=== PATIENT | female | born 1965 | race Caucasian/White ===

== ENCOUNTER 2019-09-22 00:32 | Outpatient (CLI) | payer BC, SELFPAY ==
--- NOTE | 2019-09-22 08:39 | DI.MAMMO_ITS ---
EXAM: MAMMO SCREENING CLINICAL HISTORY: SCREENING, PREVENTATIVE CARE, Z12.31, Z00.00 TECHNIQUE: Mammograms were interpreted according to the usual protocol including computer analysis w Dispatch CAD system, tomosynthesis and C-view imaging. FINDINGS: The breasts are of moderate density with fairly symmetrical distribution of fibroglandular tissue. A n area of asymmetric density is again noted in upper-outer quadrant of the left breast as seen on pre vious examinations including November 2017 and December 2012. On today's examination, this appears more prominent particularly on the CC view, in comparison with the previous examinations. Additional keith mographic views of this area and breast ultrasound are recommended. No other significant change. IMPRESSION: Question increase in prominence of upper outer quadrant left breast asymmetric radiodensity with some question of architectural distortion and/or mass. Additional mammographic views left breast and left breast ultrasound requested. Category 0. Breast density, category B. BI-RADS Cat 0 - Assessment Incomplete: Need additional imaging evaluation. Breast Density - Category B - Scattered areas of fibroglandular density.
== END 2019-09-22 00:52 ==
PROVIDERS: PCP Nurse Practitioner Family; Visit Provider Nurse Practitioner Family
DX: Z12.31 Encounter for screening mammogram for malignant neoplasm of breast (principal); R92.8 Other abnormal and inconclusive findings on diagnostic imaging of breast
CPT/HCPCS: 77063; 77067

== ENCOUNTER 2019-09-27 14:54 | Outpatient (REF) | payer BC, SELFPAY ==
[2019-09-27 17:58] LABS: HCT 40.7 % (36.0-46.0); HGB 13.6 g/dL (12.0-15.5); Mean Corp. HGB Concentration 33.4 g/dL (32.0-36.0); Mean Corpuscular Hemoglobin 30.4 pg (27.0-33.0); Mean Corpuscular Volume 91.1 fL (80-95); Mean Platelet Volume 9.9 fL (8.0-11.0); Platelet Count 300 x1000/uL (130-400); RBC 4.47 m/cumm (4.00-5.20); RBC Distribution Width 12.6 % (11.7-14.6); White Blood Cell Count 6.54 k/cumm (4.4-10.8)
[2019-09-27 18:21] LABS: ALT 26 U/L (14-59); AST 23 U/L (15-37); Albumin 3.8 g/dL (3.4-5.0); Alkaline Phosphatase 109 U/L (46-116); Anion Gap 8.3 mmol/L (3-11); BUN 12 mg/dL (7-18); Bilirubin, Total 1.2 mg/dL (0.2-1.0); CO2 29.7 mmol/L (21.0-32.0); CREATININE 0.81 mg/dL (0.55-1.02); Calcium 9.2 mg/dL (8.5-10.1); Calculated LDL 97 mg/dL; Chloride 104 mmol/L (98-107); Cholesterol 180 mg/dL (<200); Glucose 96 mg/dL (74-106); HDL Cholesterol 41 mg/dL (40-60); Sodium 142 mmol/L (136-145); TSH (W/Ref FT4) 2.24 uIU/mL (0.36-3.74); Total Protein 7.3 g/dL (6.4-8.2); Triglyceride 212 mg/dL (<150)
== END 2019-09-27 15:14 ==
LOC: NCHCN 14:54
PROVIDERS: PCP Nurse Practitioner Family; Visit Provider Nurse Practitioner Family
DX: R53.83 Other fatigue (principal)
CPT/HCPCS: 80053; 80061; 85027; 84443

== ENCOUNTER 2019-10-04 01:24 | Outpatient (CLI) | payer BC, SELFPAY ==
--- NOTE | 2019-10-04 09:45 | DI.MAMMO_ITS ---
EXAM: US BREAST LT LIMITEDand additional mammographic views left breast CLINICAL HISTORY: ASYMMETRIC DENSITY NOTED UPPER OUTER QUAD LT BREAST, APPEARS MORE PROMINENT TECHNIQUE: Ultrasound performed using standard protocol. COMPARISON: LEFT BREAST ULTRASOUND from 12/15/2017 and mammogram 09/22/19 and 2018. FINDINGS: Additional mammographic views of the left breast and left breast ultrasound are interpreted in conjun ction. These examinations were obtained to evaluate asymmetric density of upper outer quadrant of le ft breast seen on recent mammogram in an area of chronic abnormal focal radiodensity seen on multiple previous mammograms. On today's examination, the spot compression views of this area show no convin cing change from prior studies. However the breast ultrasound shows an irregular, hypoechoic masslik e finding with posterior acoustic shadowing measuring up to about 19 millimeters in diameter. This l ies in the 3 o'clock position about 2 cm from nipple. No definite increased vascular flow identified in this area on Doppler evaluation. Because of the suspicious findings on the ultrasound examination, biopsy is recommended to exclude ma lignancy. This may be accomplished with ultrasound guidance. IMPRESSION: Biopsy is recommended for left upper outer quadrant breast lesion as described above. Category 4. Br east density, category B. BI-RADS Cat 4 - Suspicious Abnormality: Biopsy should be considered. Breast Density - Category B - Scattered areas of fibroglandular density.
== END 2019-10-04 01:44 ==
PROVIDERS: PCP Nurse Practitioner Family; Visit Provider Nurse Practitioner Family
DX: Z12.31 Encounter for screening mammogram for malignant neoplasm of breast (principal); R92.8 Other abnormal and inconclusive findings on diagnostic imaging of breast; N63.21 Unspecified lump in the left breast, upper outer quadrant
CPT/HCPCS: 76642; 77063; 77067

== ENCOUNTER 2019-10-18 01:30 | Outpatient (CLI) | payer BC, SELFPAY ==
--- NOTE | 2019-10-18 08:27 | DI.US_ITS ---
EXAM: US NEEDLE LOCAL BREAST WO RAD CLINICAL HISTORY: F/U ABNL MAMMO, LT UPPER OUTER QUADRANT LESION TECHNIQUE: Ultrasound performed using standard protocol. COMPARISON: US BREAST LT LIMITED from 10/04/2019 FINDINGS: Sonography was utilized by Dr. Jimenez during the performance of an ultrasound-guided left breast bio psy. Please refer to the procedure report for complete details.
--- NOTE | 2019-10-18 08:50 | BRAIN_PTH ---
PATIENT: Bee Roper LOC: DI U#:[id number] AGE/SX: 54/F ROOM: RE10/18/[address]: Odalis Jimenez MD : 1965 BED: DIS: 10/18/2019 SPEC #: [id number] RECD: 10/18/19 12:43 STATUS: JACOB REQ #: [id number] JL: 10/18/19 08:[address]: Odalis Jimenez DEPT: Surgical Specimen RECD BY: Theresa Hart ENTERED: 10/18/19 12:43 SP TYPE: Brain OTHR DR: Filemon Stone Tissues: 1 - BREAST BX NEEDLE Procedures: GROSS AND MICRO LEVEL 4 Her-2 Dual ROSA ESTROGEN/PROGESTERONE RECEPTOR IPEX STAIN Comments: [id number]
--- NOTE | 2019-10-18 17:05 | ROE_ITS ---
DATE OF PROCEDURE: October 18, 2019 Pre-op Dx: Left Breast lesion Post-op Dx: same Surgeon: Nadja Stroud MD Anesthesia: Local with 1% Lidocaine Blood loss: 5 cc Specimen: Core needle biopsy x3 Complications: no immediate complications Procedure: After informed consent was obtained the patient was placed in a right lateral position. US was used to pinpoint the lesion. A neil was made on the skin. The skin was cleaned with alcohol and infiltrated with the above local anesthetic. A small incision was made with an 11 blade. Under US guidence the 14 gauge core needle was placed into the lesion 3 times and biopsies were done. The tissue was placed on a telfa and then placed in formalin and sent to pathology. A small titanium clip was then placed into the biopsy site. The skin was cleaned and dried. Pressure was held with a 4x4 for 3 minutes. A band-aid was then placed over the small incision. The patient was allowed to slowly sit up. She didn't feel dizzy and was allowed to change and go home. The patient tolerated the procedure well and there were no immediate complications. Needle counts were correct at the end of the case. cc: SYDNEE WONG NP Dictated by: NADJA STROUD MD Dictated: 10/18/19Time: 923 <Electronically signed by Odalis Stroud M.D.> Date: 0 10/18/19927 Date: Date: Transcribed Date: 10/18/19 Transcribed Time: 923By: PAULINO This is privileged, confidential information, intended only for the provider named. Any use or distribution by any person other than this provider is strictly prohibited. If you receive this report in error, please notify us immediately at [phone] and return the original report to us at the address above. Thank you.
== END 2019-10-18 01:50 ==
PROVIDERS: PCP Nurse Practitioner Family; Visit Provider Surgery
DX: C50.412 Malignant neoplasm of upper-outer quadrant of left female breast (principal); Z17.0 Estrogen receptor positive status [ER+]
CPT/HCPCS: 19083; 76942; 88305; 88360; 88368

== ENCOUNTER 2019-11-08 07:32 | Day surgery (SDC) | payer BC, SELFPAY ==
[2019-11-08] VITALS (7 sets, daily range): BP systolic 101–120; BP diastolic 56–78; PULSE 70–86; RESP 10–20; TEMP 36–36.7; O2SAT 94–99
[2019-11-08] MEDS: Lactated Ringers 1,000 ML 80 ML IV (09:00)
--- NOTE | 2019-11-08 09:48 | ROE_ITS ---
Date of service: 11/08/19 Time of Service: 10:00 Operative Note Operative Note DATE OF PROCEDURE: 11/08/19 PRE-OP DIAGNOSIS: Left Breast Invasive Ductal Carcinoma POST-OP DIAGNOSIS: same PROCEDURE: Left Breast needle localized lumpectomy with left axillary sentinel lymph node biopsy SURGEON: Odalis Jimenez DIRECTOR OF ONLINE MERCHANDISING: Elisabet Tabor ANESTHESIA: GETA (ASA 2/ Brendon Bansal CRNA) and local ESTIMATED BLOOD LOSS: 50 PATHOLOGY: other ([place] lymph nodes X2 and left breast tissue) COMPLICATIONS: None Patient was transported to: PACU Patient's condition: stable Indications: Mrs. Roper is a pleasant 54 year old female with newly diagnosed Left Invasive Ductal Carcinoma, nuclear grade 1, ER +, [place] + and Her-2 neg Discussed Needle localized lumpectomy vs mastectomy. Risks and benefits of both Patient would like to proced with Needle localized lumpectomy with sentinel lymph node bx P\\ Needle localized left Breast lumpectomy and SLN BX of left axillary lymphnodes Radioactive Nucleotide injection prior to surgery in radiology Needle localization in OR with US guidence Risks, benefits, complications of the procedures were reviewed with her. Complications include but are not limited to bleeding, pain, seroma, hematoma, infection, and need for a second surgery if my margins are positive, nerve injury. Questions were entertained and answered to her satisfaction and she wished to proceed. No guarantees were given or implied. Findings: 2 HOT lymph nodes Procedure Description: At 8:15 in the morning the patient was taken to the radiology department where 2 cc of radioactive isotope was injected around the left nipple. The skin was prepped with iodine and the isotope was injected into the dermis without complication. The patient was taken back to same-day surgery. An hour and a half later, at 10:00 in the morning, informed consent was obtained from the patient and she was taken back to the operating room and placed in the supine position on the operating room table. The patient was then placed under general anesthesia and an LMA was placed. Next with the assistance of the delivery and installation subcontractor a 10 cm wire was placed into the left breast lesion making sure that the tip of the wire was passed the lesion itself. The skin was cleaned with chlorhexidine prior to placing the wire. 2 cc of methicillin blue were also injected around the needle entrance and the skin was massaged for a minute. Using the [employer] counter the surface of the axilla was scanned. To 10-second counts were made. The first 1 was 6054 and the second was 3371. Both areas were marked with a skin marker. Next the l t chest wall axilla and arm were all prepped and draped in a sterile surgical fashion. At this point a timeout was done. The patient's name, date of , allergies to medications, procedure to be done, site of surgery and antibiotic prophylaxis were all reviewed. Fire risk was assessed. Next 20 cc of Exparel mixed 50-50 with 0.25% bupivacaine was injected into the dermis and subcutaneous tissue in the left axilla. A 4 cm incision was made with a 15 blade. Cautery was then used to get through the subcutaneous tissue. The Evarts probe was intermittently used to try to pinpoint the sentinel lymph nodes. The Clavipectoral fascia was cut with cautery. Next the fatty tissue was gently dissected using a hemostat. Using the Evarts probe 1 sentinel lymph node was identified. It also had some of the Methasone blue going into the lymph node. The lymph node was resected and a count was done ex vivo. The count was 12,668. The probe was then placed back into the axilla and another area of uptake was identified. This was again dissected carefully with a hemostat. An Allis was used to grab around the lymph node when it was found. As the dissection continued around the lymph node bleeding was noted and too small vascular clips were applied which stopped the bleeding. The lymph node was removed and an ex vivo count was done. The count was 3340. The axillary bed was then proved with the Donny counter and a 10-second count was done which was 144. The area was palpated and I could not feel any abnormal or enlarged lymph nodes. The area was irrigated and small areas of bleeding were stopped using cautery making sure to stay away from the nerves. A Ray-Cat was then placed into the axilla for pressure. At this point more Exparel and bupivacaine was injected into the dermis at the entrance of the wire. A 5 cm incision was made around the wire with a 10 blade. Dissection was done with cautery about 3 cm circumferentially around the needle. The dissection was taken down to the chest wall and dissected away from the fascia. Once the breast tissue was completely dissected it was marked with a single suture medial and a double suture inferior. The wire and skin were anterior. The specimen was then sent to radiology where a mammogram picture was taken. It showed the breast lesion to be located centrally within the specimen. The specimen was brought back to the operating room and placed in formalin for pathology. The cavity was irrigated with some normal saline and dried some small areas of bleeding were identified and these were stopped using cautery. Small vascular clips were then placed at the 12:00, 3:00, 6:00 and 9:00 positions. The cavity was inspected again and no bleeding was noted. The cavity was sprayed with Forrest. The wound in the axilla was also sprayed with Forrest. Both incisions were then closed with 3-0 Vicryl interrupted subdermal sutures. The dermis was closed with a continuous 4-0 Vicryl suture. The skin was cleaned and dried and skin affix was applied to both incisions. The patient was slowly woken up, the LMA was removed and she was taken back to the recovery room in stable condition. Sponge, instruments and needles were correct at the end of the case x2. 2 sentinel lymph nodes and breast tissue were all sent in formalin to pathology. There were no immediate complications.
--- NOTE | 2019-11-08 09:54 | PDOC.DSDIS_ITS ---
Discharge Plan Disposition Patient Disposition: HOME Condition: Stable Discharge Details Reason For Visit: Left Breast lumpectomy & sentinel lymph node bx Attending Provider: Odalis Jimenez Primary Care Provider: Filemon Stone Home Meds and New Rx's Prescriptions: Continued calcium carbonate [Tums] 200 mg calcium (500 mg) tablet,chewable 200 mg PO PRN RF: 0 atorvastatin [Lipitor] 40 MG tablet 40 mg PO HS RF: 0 [place] 3-6-9 1,200 MG capsule 1,200 mg PO DAILY RF: 0 geriatric iron-vit B complex Liquid PO RF: 0 calcium carbonate-vit D3-min 600 mg calcium- 400 unit tablet 2 tab PO DAILY RF: 0 escitalopram oxalate 10 mg tablet 10 mg PO HS RF: 0 calcium polycarbophil [Fiber-Tabs] 625 mg Tablet 1,250 mg PO DAILY RF: 0 Discharge Instructions Instructions: Breast Lumpectomy (DC) Additional Instructions: Activity at Home after surgery: As tolerated. Diet, Nutrition, & wound healin. Avoid alcohol until after you are recovered from your surgery 2. Make sure to eat plenty of lean protein (meat, fish, eggs, cottage cheese, beans) 3. Eat a variety of fruits and vegetables. Eat plenty of high fiber foods to avoid constipation. 4. Drink plenty of liquids to stay hydrated and avoid constipation Pain Medications: 1. Tylenol 1000 mg every 6 hours and Ibuprofen 600 mg every 6 hours (alternate every 3 hours between the two) 2. If a narcotic has been prescribed take as directed only for breakthrough pain For Constipation: 1. Take Milk of Magnesia or MiraLax as needed for constipation Other: 1. You may shower daily. Do not scrub the incisions 2. Do not soak the incisions for 1 week 3. You may alternate ice and heat as needed for pain and swelling 4. wear a well fitting bra for support for 1-2 days continuously then remove at night Wound Care: 1. Keep the incisions clean and dry Please call our office if you develop: 1. Fevers >101.5 2. Nausea or Vomiting 3. Worsening pain 4. Redness and thick discharge from the wounds If after hours please call the Hospital at and ask to speak to the on-call surgeon Stand Alone Forms: DSU Post op Instructions, Press [facility] ([facility]) Referrals: Odalis Jimenez MD [ [facility] STAFF PHYSICIAN] - 11/22/19 8:30 am Activity:: Activity as Tolerated Diet:: As Tolerated Discharge Orders Discharge Orders: Discharge Order (Routine); Ordered 11/08/19 Ordered By: Odalis Jimenez DS: Diagnosis Discharge Diagnosis (1) Invasive ductal carcinoma of breast, female: Status: Acute
[2019-11-08] MEDS: ceFAZolin 2 GM/50 ML BAG IVPB (09:58)
--- NOTE | 2019-11-08 10:00 | DI.NM_ITS ---
EXAM: NM SENTNODE INJ ONLY CLINICAL HISTORY: Left Breast Invasive Ductal Carcinoma,c50.919. COMPARISON: No exams were available for comparison EXAMINATION: 0.95 millicuries of technetium 99 M sulfur colloid was injected into the left breast by Dr. Jimenez of the department of surgery. The examination was performed according to the sentinel n ode injection protocol. No images were obtained.
--- NOTE | 2019-11-08 10:29 | DI.US_ITS ---
EXAM: US NEEDLE LOCAL BREAST WO RAD CLINICAL HISTORY: INVASIVE DUCTAL CA,FEMALE,C50.919 TECHNIQUE: Ultrasound performed using standard protocol. COMPARISON: US NEEDLE LOCAL BREAST WO RAD from 10/18/2019 FINDINGS: Sonography was utilized by Dr. Jimenez during the performance a left breast needle localization. Ple ase refer to the procedure report for complete details. IMPRESSION: Left breast needle localization.
--- NOTE | 2019-11-08 11:00 | BREAST_PTH ---
PATIENT: Bee Roper LOC: [facility]EB U#:[id number] AGE/SX: 54/F ROOM: RE11/08/[address]: Odalis Jimenez MD : 1965 BED: DIS: 11/08/2019 SPEC #: [id number] RECD: 11/09/19 11:48 STATUS: JACOB REKathryn #: [id number] JL: 11/08/19 11:[address]: Odalis Jimenez DEPT: Surgical Specimen RECD BY: Theresa Hart ENTERED: 11/09/19 11:52 SP TYPE: Breast OTHR DR: Filemon Stone Tissues: 1 - BREAST INCISION/EXCISION 2 - BREAST INCISION/EXCISION 3 - BREAST INCISION/EXCISION Procedures: GROSS AND MICRO LEVEL 4 IMMUNOPEROXIDASE STAIN GROSS AND MICRO LEVEL 5 Comments: [id number] (ALL SPECIMENS RADIOACTIVE)
[2019-11-08] MEDS: Bupivacaine 0.25% Pres-Free 30 ML VIAL (11:09)
--- NOTE | 2019-11-08 11:25 | DI.MAMMO_ITS ---
EXAM: MG MAMMO SPECIMEN CLINICAL HISTORY: needle loc breast cancer. COMPARISON: Priors available for comparison. FINDINGS: The left breast specimen was submitted. The area of concern is wholly located within the left breast specimen. The localization wire is located within the specimen. Findings were discussed with Dr. Enrique herzog of the Department of surgery on the date of the examination.
== END 2019-11-08 15:40 | disposition home or self-care (01) ==
PROVIDERS: PCP Nurse Practitioner Family; Visit Provider Surgery
PROC: (CPT 19302; principal; 2019-11-08 10:00)
PROC: (CPT 38525; 2019-11-08 10:00)
DX: C50.912 Malignant neoplasm of unspecified site of left female breast (principal); Z17.0 Estrogen receptor positive status [ER+]
CPT/HCPCS: 38525; 19125; 38792; 77061; 77065; 88305; A9541; 76942; 88307; 88361; G0279; J0690; J1100; J1885; J2250; J2405; J2704

== ENCOUNTER 2019-12-16 02:13 | Outpatient (CLI) | payer BC, SELFPAY ==
--- NOTE | 2019-12-16 | DI.NM_ITS ---
EXAM: NM BONE SCAN WHOLE BODY GRP CLINICAL HISTORY: BREAST CA, PAIN IN LT POSTEROLATERAL INFERIOR RIB CAGE, C50.912. TECHNIQUE: Injected Dose: 25 mCi Tc-99m MDP Delayed Images: 2-3 hours. COMPARISON: NM SENTNODE INJ ONLY from 11/08/2019 FINDINGS: Symmetric axial uptake. Bilateral renal excretion is identified. No focal area of intense suspicious uptake is seen. IMPRESSION: No evidence of metastatic disease. DATA REPOSITORY:
== END 2019-12-16 02:33 ==
PROVIDERS: PCP Nurse Practitioner Family; Visit Provider Radiology Radiation Oncology
DX: R07.81 Pleurodynia (principal); C50.912 Malignant neoplasm of unspecified site of left female breast; Z12.89 Encounter for screening for malignant neoplasm of other sites
CPT/HCPCS: 78306

== ENCOUNTER 2020-05-15 04:39 | Outpatient (CLI) | payer BC, SELFPAY ==
[2020-05-15 12:28] LABS: Abs Immature Grans 0.01 10^3/uL (0.0-0.06); Absolute Basophil Count 0.02 10^3/uL (0.0-0.2); Absolute Eosinophil Count 0.07 10^3/uL (0.0-0.7); Absolute Lymphocyte Count 1.19 10^3/uL (1.2-3.4); Absolute Monocyte Count 0.39 10^3/uL (0.1-0.8); Basophils % 0.5; Eosinophils % 1.7; HCT 40.5 % (36.0-46.0); HGB 13.2 g/dL (11.2-15.7); Immature Grans % 0.2; Lymphocytes % 28.5; MCH 30.1 pg (27.0-33.0); MCHC 32.6 % (32.0-36.0); MCV 92.3 fL (80-95); MPV 9.6 fL (8.0-11.0); Monocytes % 9.3; Neutrophils % 59.8; Nucleated RBC 0 %; Platelet Count 254 10^3/uL (130-400); RBC 4.39 10^6/uL (3.93-5.22); RDW 12.8 % (11.7-14.6); RDW-SD 42.9 fL; WBC 4.18 10^3/uL (4.4-10.8)
[2020-05-15 13:00] LABS: ALT 31 U/L (14-59); AST 27 U/L (15-37); Albumin 3.8 g/dL (3.4-5.0); Alkaline Phosphatase 92 U/L (46-116); Anion Gap 8.4 mmol/L (3-11); BUN 11 mg/dL (7-18); Bilirubin, Total 1.1 mg/dL (0.2-1.0); CO2 28.6 mmol/L (21.0-32.0); CREATININE 0.72 mg/dL (0.55-1.02); Calcium 9.2 mg/dL (8.5-10.1); Chloride 106 mmol/L (98-107); Glucose 111 mg/dL (74-106); Potassium 3.8 mmol/L (3.5-5.1); Sodium 143 mmol/L (136-145); Total Protein 7.3 g/dL (6.4-8.2)
[2020-05-15 16:54] LABS: Estradiol 18 pg/mL (See Note)
[2020-05-15 17:44] LABS: FSH 109.8 mIU/mL (See Note)
== END 2020-05-15 04:59 ==
PROVIDERS: PCP Nurse Practitioner Family; Visit Provider Internal Medicine
DX: C50.412 Malignant neoplasm of upper-outer quadrant of left female breast (principal); Z17.0 Estrogen receptor positive status [ER+]; Z78.0 Asymptomatic menopausal state
CPT/HCPCS: 36415; 80053; 82670; 83001; 85025

== ENCOUNTER 2020-08-21 01:52 | Outpatient (CLI) | payer BC, SELFPAY ==
[2020-08-21 12:12] LABS: Abs Immature Grans 0.02 10^3/uL (0.0-0.06); Absolute Basophil Count 0.04 10^3/uL (0.0-0.2); Absolute Eosinophil Count 0.11 10^3/uL (0.0-0.7); Absolute Lymphocyte Count 1.37 10^3/uL (1.2-3.4); Absolute Monocyte Count 0.36 10^3/uL (0.1-0.8); Absolute Neutrophil Count 2.38 10^3/uL (1.2-6.7); Basophils % 0.9; Eosinophils % 2.6; HCT 40.4 % (36.0-46.0); HGB 13.7 g/dL (11.2-15.7); Immature Grans % 0.5; MCHC 33.9 % (32.0-36.0); MCV 91.4 fL (80-95); MPV 9.2 fL (8.0-11.0); Monocytes % 8.4; Neutrophils % 55.6; Nucleated RBC 0 %; Platelet Count 240 10^3/uL (130-400); RBC 4.42 10^6/uL (3.93-5.22); RDW 12.6 % (11.7-14.6); RDW-SD 42.2 fL; WBC 4.28 10^3/uL (4.4-10.8)
[2020-08-21 12:26] LABS: ALT 27 U/L (14-59); AST 20 U/L (15-37); Albumin 3.8 g/dL (3.4-5.0); Alkaline Phosphatase 100 U/L (46-116); BUN 11 mg/dL (7-18); Bilirubin, Total 1.3 mg/dL (0.2-1.0); CREATININE 0.79 mg/dL (0.55-1.02); Calcium 8.9 mg/dL (8.5-10.1); Chloride 104 mmol/L (98-107); Glucose 113 mg/dL (74-106); Potassium 3.8 mmol/L (3.5-5.1); Sodium 140 mmol/L (136-145); Total Protein 7.6 g/dL (6.4-8.2)
[2020-09-05 14:38] LABS: Estradiol <10 pg/mL
== END 2020-08-21 02:12 ==
PROVIDERS: PCP Nurse Practitioner Family; Visit Provider Internal Medicine
DX: C50.912 Malignant neoplasm of unspecified site of left female breast (principal); Z17.0 Estrogen receptor positive status [ER+]; Z78.0 Asymptomatic menopausal state
CPT/HCPCS: 36415; 80053; 82670; 83001; 85025

== ENCOUNTER 2020-09-11 13:54 | Outpatient (REF) | payer BC, SELFPAY ==
[2020-09-11 18:12] LABS: Calculated LDL 80 mg/dL (<100); Cholesterol 149 mg/dL (<200); HDL Cholesterol 42 mg/dL (40-60); Triglyceride 138 mg/dL (<150)
[2020-09-11 18:33] LABS: Hemoglobin A1C 5.6 % (<5.7)
== END 2020-09-11 14:14 ==
LOC: NCHCN 13:54
PROVIDERS: PCP Nurse Practitioner Family; Visit Provider Nurse Practitioner Family
DX: R73.03 Prediabetes (principal); E78.5 Hyperlipidemia, unspecified
CPT/HCPCS: 80061; 83036

== ENCOUNTER 2020-12-24 02:18 | Outpatient (CLI) | payer BC, SELFPAY ==
--- NOTE | 2020-12-24 | DI.MAMMO_ITS ---
EXAM: MG MAMMO SCREENING 60 MIN DUR CLINICAL HISTORY: SCREENING, PERSONAL H/O BREAST CA,C50.912,S/P TREATMENT. TECHNIQUE: Bilateral full field digital CC and MLO mammographic images were obtained with 3D tomosyn thesis and utilizing computer aided detection (CAD). COMPARISON: Prior mammograms dating back to 2010, the most recent being November 2019. This 55-year -old patient underwent recent left breast lumpectomy following last year's mammogram, followed by rad iation therapy.. FINDINGS: No new right breast findings. Left breast lumpectomy site appears benign. There are no new spiculated masses nor malignant appearing microcalcification groups. Benign-appearing microcalcifications and benign partially calcified oil cysts noted. Architectural distortion from lumpectomy noted. IMPRESSION: 1. No radiographic evidence of malignancy in the right breast. 2. Benign-appearing lumpectomy site left breast (2019) BI-RADS Category 2 - Benign Findings Breast Density - Category B - Scattered areas of fibroglandular density Breast density Category C or D implies that the patient has dense breast tissue. Dense breast tissue can make it harder to find cancer on a mammogram. Dense breast tissue is also associated with an incr eased risk of breast cancer. This information about the result of the mammogram report was provided to the patient to raise their awareness. Use this report when you speak with the patient about their risks for breast cancer, which includes their family history. At that time, you may recommend additional screening tests (Ultrasoun d or MRI) as these tests may add significant information. A negative radiographic report should not delay biopsy if a dominant or clinically suspicious mass is present. Up to ten percent of cancers are not identified on mammography. A negative report may reinforce clinical impression. Adenosis and dense breasts may obscure an underlying neoplasm. False positive reports average 6 to 10%. Patient will receive a letter notifying them of these results.
== END 2020-12-24 02:38 ==
PROVIDERS: PCP Nurse Practitioner Family; Visit Provider Radiology Radiation Oncology
DX: Z12.31 Encounter for screening mammogram for malignant neoplasm of breast (principal); Z85.3 Personal history of malignant neoplasm of breast
CPT/HCPCS: 77063; 77067

== ENCOUNTER 2021-01-14 19:10 | Outpatient (REF) | payer BC, SELFPAY ==
[2021-01-14 17:56] LABS: Cholesterol 283 mg/dL (<200); HDL Cholesterol 36 mg/dL (40-60); Triglyceride 451 mg/dL (<150)
[2021-01-14 18:05] LABS: Hemoglobin A1C 5.9 % (<5.7)
[2021-01-14 18:08] LABS: LDL CHOLESTEROL 176 mg/dL (<100)
[2021-01-16 10:22] LABS: Hepatitis C Ab w Rflx HCV PCR Negative (Negative)
[2021-01-16 12:38] LABS: HIV-1/2 Ag & Ab Screen Reactive (Negative)
[2021-01-18 10:08] LABS: HIV 1 Ab Diff Negative (Negative); HIV 2 Ab Diff Negative (Negative)
== END 2021-01-14 19:11 | disposition home or self-care (01) ==
LOC: NCHCN 19:10
PROVIDERS: PCP Nurse Practitioner Family; Visit Provider Nurse Practitioner Family
DX: E78.5 Hyperlipidemia, unspecified (principal); Z11.59 Encounter for screening for other viral diseases; Z11.4 Encounter for screening for human immunodeficiency virus [HIV]; R73.03 Prediabetes
CPT/HCPCS: 80061; 83721; 86701; 86702; 86803; 87389; 83036

== ENCOUNTER 2021-01-18 17:02 | Outpatient (REF) | payer BC, SELFPAY ==
[2021-01-21 16:21] LABS: HIV 1 RNA Qualitative Undetected copies/mL (Undetected)
== END 2021-01-18 17:03 | disposition home or self-care (01) ==
LOC: NCHCN 17:02
PROVIDERS: PCP Nurse Practitioner Family; Visit Provider Nurse Practitioner Family
DX: Z21 Asymptomatic human immunodeficiency virus [HIV] infection status (principal)
CPT/HCPCS: 87536

== ENCOUNTER 2021-03-11 04:46 | Outpatient (CLI) | payer BC, SELFPAY ==
[2021-03-11 13:00] LABS: Abs Immature Grans 0.04 10^3/uL (0.0-0.06); Absolute Basophil Count 0.03 10^3/uL (0.0-0.2); Absolute Eosinophil Count 0.18 10^3/uL (0.0-0.7); Absolute Lymphocyte Count 2.11 10^3/uL (1.2-3.4); Absolute Monocyte Count 0.48 10^3/uL (0.1-0.8); Absolute Neutrophil Count 3.15 10^3/uL (1.2-6.7); Basophils % 0.5; HCT 40.3 % (36.0-46.0); HGB 13.8 g/dL (11.2-15.7); Immature Grans % 0.7; Lymphocytes % 35.2; MCH 30.5 pg (27.0-33.0); MCHC 34.2 % (32.0-36.0); MPV 9.2 fL (8.0-11.0); Neutrophils % 52.6; Nucleated RBC 0 %; Platelet Count 255 10^3/uL (130-400); RBC 4.53 10^6/uL (3.93-5.22); RDW 12.4 % (11.7-14.6); RDW-SD 40.5 fL; WBC 5.99 10^3/uL (4.4-10.8)
[2021-03-11 13:12] LABS: ALT 31 U/L (14-59); AST 24 U/L (15-37); Albumin 3.7 g/dL (3.4-5.0); Alkaline Phosphatase 112 U/L (46-116); Anion Gap 7.8 mmol/L (3-11); BUN 11 mg/dL (7-18); Bilirubin, Total 0.8 mg/dL (0.2-1.0); CO2 28.2 mmol/L (21.0-32.0); CREATININE 0.9 mg/dL (0.55-1.02); Calcium 9.4 mg/dL (8.5-10.1); Chloride 105 mmol/L (98-107); Glucose 101 mg/dL (74-106); Potassium 4.4 mmol/L (3.5-5.1); Sodium 141 mmol/L (136-145); Total Protein 7.8 g/dL (6.4-8.2)
== END 2021-03-11 04:47 | disposition home or self-care (01) ==
LOC: LBO 04:46
PROVIDERS: PCP Nurse Practitioner Family; Visit Provider Internal Medicine
DX: C50.912 Malignant neoplasm of unspecified site of left female breast (principal); Z17.0 Estrogen receptor positive status [ER+]; Z79.811 Long term (current) use of aromatase inhibitors
CPT/HCPCS: 36415; 80053; 85025

== ENCOUNTER 2022-02-10 18:42 | Outpatient (REF) | payer BC, SELFPAY | END 2022-02-10 18:43 | disposition home or self-care (01) | LOC: LBN 18:42 | PROVIDERS: PCP Nurse Practitioner Family; Visit Provider Nurse Practitioner Family ==

== ENCOUNTER → 2022-03-12 18:26 | Outpatient (CLI) | payer BC, SELFPAY ==
--- NOTE | 2022-03-12 | DI.RAD_ITS ---
Exam(s) XR KNEE LT 3V AP,LAT,VIRIDIANA EXAM: XR KNEE LT 3V AP,LAT,VIRIDIANA CLINICAL HISTORY: LEFT KNEE PAIN-M25.562. TECHNIQUE: 2D digital imaging was performed. COMPARISON: No exams were available for comparison FINDINGS: 3 views No evidence of fracture prominent joint effusion no degenerative changes. No osseous lesions. IMPRESSION: No significant osseous findings. DATA REPOSITORY: RADIATION DOSE DELIVERED:
--- NOTE | 2022-03-12 17:28 | DI.VRAD_ITS ---
PROCEDURE INFORMATION: Exam: XR Left Knee Exam date and time: 03/12/2022 5:04 PM Age: 57 years old Clinical indication: Other: Left knee pain TECHNIQUE: Imaging protocol: XR Left knee. Views: 3 views. COMPARISON: NM BONE SCAN WHOLE BODY GRP 12/16/2019 11:31 AM FINDINGS: Bones/joints: No acute fracture or dislocation. Soft tissues: Unremarkable. IMPRESSION: No acute fracture or dislocation. Dictated and Authenticated by: Nathan Frost MD. Ordering:ANSHUL Benavidez MD
== END ==
PROVIDERS: PCP Nurse Practitioner Family; Visit Provider Physician Assistant Medical
DX: M25.562 Pain in left knee (principal); Z91.81 History of falling
CPT/HCPCS: 73562

== ENCOUNTER 2022-03-27 13:41 | Outpatient (CLI) | payer BC, SELFPAY ==
[2022-03-27 13:44] LABS: Abs Immature Grans 0.03 10^3/uL (0.0-0.06); Absolute Basophil Count 0.04 10^3/uL (0.0-0.2); Absolute Eosinophil Count 0.12 10^3/uL (0.0-0.7); Absolute Lymphocyte Count 2.41 10^3/uL (1.2-3.4); Absolute Monocyte Count 0.52 10^3/uL (0.1-0.8); Absolute Neutrophil Count 3.32 10^3/uL (1.2-6.7); Basophils % 0.6; Eosinophils % 1.9; HCT 37.5 % (36.0-46.0); HGB 12.8 g/dL (11.2-15.7); Immature Grans % 0.5; Lymphocytes % 37.4; MCH 30.5 pg (27.0-33.0); MCHC 34.1 % (32.0-36.0); MCV 90 fL (80-95); MPV 9.3 fL (8.0-11.0); Monocytes % 8.1; Neutrophils % 51.5; Platelet Count 272 10^3/uL (130-400); RBC 4.19 10^6/uL (3.93-5.22); RDW 12.5 % (11.7-14.6); RDW-SD 41.1 fL; WBC 6.44 10^3/uL (4.4-10.8)
[2022-03-27 14:25] LABS: ALT 31 U/L (14-59); AST 26 U/L (15-37); Albumin 3.6 g/dL (3.4-5.0); Alkaline Phosphatase 149 U/L (46-116); Anion Gap 8.5 mmol/L (3-11); BUN 10 mg/dL (7-18); Bilirubin, Total 0.8 mg/dL (0.2-1.0); CO2 28.5 mmol/L (21.0-32.0); CREATININE 0.8 mg/dL (0.55-1.02); Calcium 8.9 mg/dL (8.5-10.1); Chloride 103 mmol/L (98-107); Glucose 149 mg/dL (74-106); Potassium 3.4 mmol/L (3.5-5.1); Sodium 140 mmol/L (136-145); Total Protein 7.9 g/dL (6.4-8.2)
== END 2022-03-27 13:42 | disposition home or self-care (01) ==
LOC: LBO 13:41
PROVIDERS: PCP Nurse Practitioner Family; Visit Provider Nurse Practitioner Adult Health
DX: C50.912 Malignant neoplasm of unspecified site of left female breast (principal); Z17.0 Estrogen receptor positive status [ER+]; Z79.811 Long term (current) use of aromatase inhibitors
CPT/HCPCS: 36415; 80053; 85025

== ENCOUNTER → 2022-05-15 00:42 | Outpatient (CLI) | payer BC, SELFPAY ==
--- NOTE | 2022-05-15 11:20 | DI.MAMMO_ITS ---
Exam(s) MG MAMMO SCREENING 60 MIN DUR EXAM: MG MAMMO SCREENING 60 MIN DUR CLINICAL HISTORY: SCREENING, H/O BREAST CA,Z17.0,S/P TREATMENT, ? STATUS. TECHNIQUE: Bilateral full field digital CC and MLO mammographic images were obtained with 3D tomosyn thesis and utilizing computer aided detection (CAD). COMPARISON: Prior mammograms were reviewed, the most recent being December 2020.. This 57-year-old patient underwent left breast lumpectomy in 2019. FINDINGS: No new significant radiograph findings in the right breast. Mild change in the appearance of the left breast lumpectomy site on the CC view which is probably rel ated to scarring. Benign appearing calcifications in this region are noted. Recommend six-month follow-up. IMPRESSION: 1. No radiographic evidence of malignancy in the right breast. 2. Mild changes in the left breast lumpectomy site which are probably related to some progressive s carring. Recommend repeat left breast mammogram in 6 months. BI-RADS Category 3 - 6 month - Probably Benign Finding: Recommend follow-up mammography in 6 months Breast Density - Category B - Scattered areas of fibroglandular density Breast density Category C or D implies that the patient has dense breast tissue. Dense breast tissue can make it harder to find cancer on a mammogram. Dense breast tissue is also associated with an incr eased risk of breast cancer. This information about the result of the mammogram report was provided to the patient to raise their awareness. Use this report when you speak with the patient about their risks for breast cancer, which includes their family history. At that time, you may recommend additional screening tests (Ultrasoun d or MRI) as these tests may add significant information. A negative radiographic report should not delay biopsy if a dominant or clinically suspicious mass is present. Up to ten percent of cancers are not identified on mammography. A negative report may reinforce clinical impression. Adenosis and dense breasts may obscure an underlying neoplasm. False positive reports average 6 to 10%. Patient will receive a letter notifying them of these results.
== END ==
PROVIDERS: PCP Nurse Practitioner Family; Visit Provider Nurse Practitioner Family
DX: Z12.31 Encounter for screening mammogram for malignant neoplasm of breast (principal); Z17.0 Estrogen receptor positive status [ER+]; Z85.3 Personal history of malignant neoplasm of breast
CPT/HCPCS: 77063; 77067

== ENCOUNTER 2022-05-21 15:08 | Outpatient (REF) | payer BC, SELFPAY ==
[2022-05-21 14:20] LABS: Anion Gap 10.6 mmol/L (3-11); BUN 9 mg/dL (7-18); CO2 26.4 mmol/L (21.0-32.0); CREATININE 0.7 mg/dL (0.55-1.02); Calculated LDL 97 mg/dL (<100); Chloride 104 mmol/L (98-107); Cholesterol 180 mg/dL (<200); Glucose 129 mg/dL (74-106); HDL Cholesterol 39 mg/dL (40-60); Potassium 3.8 mmol/L (3.5-5.1); Sodium 141 mmol/L (136-145); Triglyceride 224 mg/dL (<150)
[2022-05-21 14:50] LABS: Hemoglobin A1C 6.9 % (<5.7)
== END 2022-05-21 15:09 | disposition home or self-care (01) ==
LOC: NCHCN 15:08
PROVIDERS: PCP Nurse Practitioner Family; Visit Provider Physician Assistant
DX: R73.03 Prediabetes (principal); E78.5 Hyperlipidemia, unspecified
CPT/HCPCS: 80048; 80061; 83036

== ENCOUNTER → 2022-09-16 01:24 | Outpatient (CLI) | payer BC, SELFPAY ==
--- NOTE | 2022-09-16 15:00 | DI.DEXA_ITS ---
Exam(s) XR DEXA BONE DENSITY W/WO TYRELL EXAM: XR DEXA BONE DENSITY W/WO TYRELL CLINICAL HISTORY: H/O LT BREAST CA ON LONG-TERM AI, ? STATUS, C50.412, Z17.0 TECHNIQUE: COMPARISON: No exams were available for comparison FINDINGS: Lateral Spine Image: Unremarkable. No compression deformities identified. Left hip: Total T-Score: -0.2 Total Z-Score: 0.7 T- and Z-scores: Within normal limits. Lumbar Spine: Total T-Score: -1.4 Total Z-Score: 0.0 T- and Z-scores: Findings are consistent with osteopenia. IMPRESSION: No evidence of osteoporosis.
== END ==
PROVIDERS: Visit Provider Nurse Practitioner Family
DX: Z13.820 Encounter for screening for osteoporosis (principal); C50.412 Malignant neoplasm of upper-outer quadrant of left female breast; M85.88 Other specified disorders of bone density and structure, other site
CPT/HCPCS: 77080

== ENCOUNTER 2022-11-25 01:11 | Outpatient (CLI) | payer BC, SELFPAY ==
--- NOTE | 2022-11-25 | DI.MAMMO_ITS ---
Exam(s) MAMMO DIAGNOSTIC UNI EXAM: MAMMO DIAGNOSTIC UNI CLINICAL HISTORY: 6 MO FU FROM 05/15/22, ABNL MAMMO R92.8. TECHNIQUE: Craniocaudal and mediolateral oblique Full Field Digital Mammography views of the left br east with Computer Aided Diagnosis followed by Tomosynthesis. COMPARISON: Comparison is made with prior examinations. FINDINGS: Mammography/Tomosynthesis: Masses/Architectural Distortion: None seen. Stable findings of a left lumpectomy. Microcalcifictions: No suspicious pleomorphic-type are seen. Skin Thickening/Nipple Retraction: None. IMPRESSION: 1. No evidence of malignancy is noted. 2. Unless there is more urgent need, follow-up screening mammography is recommended, as per [employer] guidelines. 3. The findings were discussed with the patient on the date of the examination. BI-RADS Category 2 - Benign Findings Breast Density - Category B - Scattered areas of fibroglandular density Breast density Category C or D implies that the patient has dense breast tissue. Dense breast tissue can make it harder to find cancer on a mammogram. Dense breast tissue is also associated with an incr eased risk of breast cancer. This information about the result of the mammogram report was provided to the patient to raise their awareness. Use this report when you speak with the patient about their risks for breast cancer, which includes their family history. At that time, you may recommend additional screening tests (Ultrasoun d or MRI) as these tests may add significant information. A negative radiographic report should not delay biopsy if a dominant or clinically suspicious mass is present. Up to ten percent of cancers are not identified on mammography. A negative report may reinforce clinical impression. Adenosis and dense breasts may obscure an underlying neoplasm. False positive reports average 6 to 10%. Patient will receive a letter notifying them of these results.
== END 2022-11-25 01:31 ==
PROVIDERS: Visit Provider Radiology Radiation Oncology
DX: R92.8 Other abnormal and inconclusive findings on diagnostic imaging of breast (principal)
CPT/HCPCS: 77061; 77065; G0279

== ENCOUNTER 2022-12-19 12:27 | Outpatient (REF) | payer BC, SELFPAY ==
--- NOTE | 2022-12-19 12:00 | PAPFT_PTH ---
PATIENT: Bee Roper LOC: [facility] U#:[id number] AGE/SX: 57/F ROOM: RE12/19/[address]: Herb Antony : 1965 BED: DIS: 12/19/2022 SPEC #: [id number] RECD: 12/19/22 18:11 STATUS: TEEStephanie REQ #: [id number] JL: 12/19/22 12:[address]: Herb Antony DEPT: [facility] Cytology RECD BY: Theresa Hart ENTERED: 12/19/22 18:11 SP TYPE: PAPFT JAMI DR: Unknown,Unknown Tissues: 1 - CX/ENDOCX FOR PAP SMEARS Procedures: PAP THIN PREP/UVM Screening Comments: [id number] (UNSATISFACTORY FOR EVALUATION)
[2022-12-19 17:47] LABS: COMMENT (LAB VIEW ONLY) 85.76 mg/dL; Microalb ug/mg Crea 8.5 ug/mg Cr
== END 2022-12-19 12:28 | disposition home or self-care (01) ==
LOC: NCHCN 12:27
PROVIDERS: Visit Provider Physician Assistant
DX: E11.9 Type 2 diabetes mellitus without complications (principal); Z12.4 Encounter for screening for malignant neoplasm of cervix; Z00.00 Encounter for general adult medical examination without abnormal findings; R87.615 Unsatisfactory cytologic smear of cervix
CPT/HCPCS: 88142; 82043; 82570

== ENCOUNTER 2023-02-02 08:57 | Day surgery (SDC) | payer BC, SELFPAY ==
--- NOTE | 2023-02-01 19:18 | W.PM.DSUDISC ---
Date of service: 02/02/23 Time of Service: 11:14 Discharge Plan Disposition Patient Disposition: Home Condition: Good Discharge Details Reason For Visit: Colonsoscopy Attending Provider: Mark Tran Primary Care Provider: Herb Antony Home Meds and New Rx's Prescriptions: Continued calcium carbonate [Tums] 200 mg calcium (500 mg) tablet,chewable 200 mg PO PRN anastrozole 1 mg tablet 1 mg PO DAILY berberine-herbal comb no.18 Capsule 1 cap PO DAILY atorvastatin [Lipitor] 40 MG tablet 40 mg PO HS calcium carbonate-vit D3-min 600 mg calcium- 400 unit tablet 2 tab PO DAILY escitalopram oxalate 10 mg tablet 10 mg PO HS Discontinued polyethylene glycol 3350 17 gram/dose powder 238 g PO ONCE Qty: 238 0RF Rx Instructions: take per colonoscopy instructions bisacodyl [Dulcolax (bisacodyl)] 5 mg tablet,delayed release (DR/EC) 5 mg PO ONCE Qty: 4 0RF Rx Instructions: take per colonoscopy instructions Discharge Instructions Additional Instructions: Bee, we were able to complete your colonoscopy today without much difficulty. The quality of your preparation was outstanding. I did not see any evidence of polyps or tumors anywhere along the length of your large intestine. With a negative screening colonoscopy, my recommendation is to consider another one in 10 years. 1. If tolerated, consume a soft, low fiber diet for 1-2 days. 2. Do not drive, drink alcohol, operate machinery, make critical decisions, or do activities that require coordination or balance for 24 hours. 3. Because air was put into your colon during the procedure, expelling air from your rectum (passing gas or farting) is normal. 4. You may not have a bowel movement for 1-3 days because of the colonoscopy prep. This is normal. 5. Go directly to the emergency room if you notice any of the following: Develop chills (warm to touch), or if you have a thermometer and your temperature is above 101 Difficulty breathing or difficultly swallowing Persistent vomiting Severe abdominal pain, other than gas cramps Severe chest pain Black, tarry stools Any bleeding ? exceeding one tablespoon 6. Call your physician if the site where your intravenous was started becomes red, swollen, painful, and warm to touch. 7. Your physician has reviewed your pre-procedure medications. Please continue to take those medications as previously ordered. You will be given specific information/education regarding any changes to your medications before leaving. Activity:: Activity as Tolerated Diet:: As Tolerated Discharge Orders Discharge Orders: Discharge Order (Routine); Ordered 02/01/23 Ordered By: Mark Tran DS: Diagnosis Discharge Diagnosis (1) Screening for colon cancer: Status: Acute Asessment and Plan: Negative screening colonoscopy. Recommend follow-up in 10 years.
--- NOTE | 2023-02-01 19:20 | W.COLOREPORT ---
Date of service: 02/02/23 Time of Service: 11:16 Colonoscopy Report Date of procedure: 02/02/23 Pre-op diagnosis general: Screening colonoscopy Post-op diagnosis procedure note: same Procedure: Colonoscopy Surgeon: Mark Tran Anesthesia Type: General:No Airway Estimated blood loss (mL): 0 Pathology: none sent Complications: None Disposition: same day Indications: Bee is a 57 year old woman with a history of an adenomatous colon polyp. She is here for her next screening colonoscopy Prep: Miralax/Dulcolax Procedure Start Time: 10:44 Procedure End Time: 11:03 Retraction Time: 12 Findings: Negative screening colonoscopy Procedure Description: After the induction of monitored anesthetic care, and with the patient in left lateral decubitus position, I began by performing an external anorectal exam.? Perineum and skin were normal, as was the anal verge.? There was no not evidence of external hemorrhoids.? Next, I performed a digital rectal exam.? I did appreciate any abnormal findings.? Next, I advanced a colonoscope into the rectal vault.? I performed retroflexion.? This appeared normal.? Using insufflation, I then advanced the colonoscope beyond the rectal folds and into the sigmoid colon before advancing towards the cecum.? The quality of the prep was outstanding.? The scope was noted to be in the cecum by identification of the ileocecal valve and appendiceal orifice.? I then began withdrawing the colonoscope using repeated irrigation as necessary for full evaluation of the colonic mucosa. ?Once the scope was withdrawn to the level of the rectum, great care was taken to examine portions of the rectal folds.? I did not see any evidence of tumors or polyps. Finally, the scope was withdrawn and the patient was brought to the same-day surgery recovery unit as the anesthetic wore off. ?The findings and instructions were shared with the patient prior to discharge.
[2023-02-02 09:36] VITALS: BP 127/83; PULSE 90; RESP 17; TEMP 36.5; O2SAT 98
[2023-02-02] MEDS: Lactated Ringers 1,000 ML 80 ML IV (09:52)
--- NOTE | 2023-02-02 10:15 | ANES.PREOP_ITS ---
General Info Date of Service Date Performed: 02/02/23 Height: 5 ft 3.5 in Weight: 85 kg Body Mass Index (BMI): 32.6 Surgical Procedure: Operation Date: 02/02/23 10:20 Proposed Procedure Side Surgeon p Colonoscopy Mark Tran MD Meds Allergies and Home Medications Allergies Allergy/AdvReac Type Severity Reaction Status Date / Time No Known Allergies Allergy Verified 02/02/23 09:44 Home Medication Medication Instructions Recorded atorvastatin 40 mg tablet (Lipitor) 40 mg PO HS 12/03/17 calcium carb-vit D3-minerals 600 2 tab PO DAILY 10/07/19 mg calcium-400 unit tablet escitalopram oxalate 10 mg tablet 10 mg PO HS 10/07/19 calcium carbonate 200 mg calcium 200 mg PO PRN 10/25/19 (500 mg) chewable tablet (Tums) anastrozole 1 mg tablet 1 mg PO DAILY 09/24/20 berberine-herbal comb no.18 capsule 1 cap PO DAILY 01/29/23 Current Visit Medications: Current Medications Generic Name Dose Route Start Last Admin Trade Name Joseq PRN Reason Stop Dose Admin Hyoscyamine Sulfate 0.125 mg 02/01/23 19:21 Hyoscyamine 0.125 Mg Sl/Oral/Chew SL DIRECTED PRN Ringer's Solution 1,000 mls @ 80 mls/hr 02/02/23 06:00 02/02/23 09:52 IV 02/02/23 23:59 80 mls/hr INFUSION RANDY Administration IV Miscellaneous Supplies 1 each 02/02/23 06:00 Iv Access IV 02/02/23 23:59 DIRECTED RANDY Ondansetron HCl 4 mg 02/01/23 19:21 Ondansetron 4 Mg/2 Ml Vial IVP Q4H PRN PRN Nausea / Vomiting Sodium Chloride 0 ml 02/02/23 06:00 Normal Saline Flush 10 Ml Syr IV 02/02/23 23:59 PRN PRN Sodium Chloride 0 ml 02/02/23 06:00 Normal Saline 10 Ml Vial IJ 02/02/23 23:59 DIRECTED PRN Sterile Water 0 ml 02/02/23 06:00 Water,Injection,Sterile 10 Ml Vial IJ 02/02/23 23:59 DIRECTED PRN PFSH Active Problems Active Problems: Problem Status Onset Code Screening for colon cancer Z12.11 Mild cognitive impairment G31.84 Sensorineural hearing loss of both ears H90.3 Female cystocele N81.10 Invasive ductal carcinoma of breast, female C50.919 Medical History Medical History Abnormal mammogram of left breast Adenomatous colon polyp Anxiety and depression Family history of cardiovascular disease Fatigue Fibroid uterus Hearing loss, bilateral Herpes zoster Hyperlipidemia Memory loss Obesity PMS (premenstrual syndrome) Prediabetes Weakness of left arm Surgical History Surgical History Colonoscopy - MAC (01/08/18) H/O lymph node biopsy (~11/08/19) [place] Lymph node biopsy Status post partial mastectomy of left breast (~11/08/19) Tobacco Smoking/Tobacco Use Status: Never Alcohol Alcohol Intake: former Substance Use Substance use: Never Substance use type: does not use Details: alcohol: years Vital Signs and Lab Results Vital Signs Most Recent Vital Signs in EMR: Most Recent Vital Signs Temp Pulse Resp BP Pulse Ox 36.5 C 90 17 127/83 98 02/02/23 09:36 02/02/23 09:36 02/02/23 09:36 02/02/23 09:36 02/02/23 09:36 Lab Results Blood Type / Crossmatch: No Data to Display Complete Blood Count: No Data to Display Complete Metabolic Panel: No Data to Display Liver Function Panel: No Data to Display Coagulation Panel: No Data to Display Cardiac Panel: No Data to Display Arterial Blood Gas: No Data to Display Venous Blood Gas: No Data to Display Pancreas Panel: No Data to Display Thyroid Panel: No Data to Display Infectious Disease: No Data to Display Blood Cultures: No Data to Display Toxicology Panel: No Data to Display Anesthesia Assessment and Plan Anesthesia History Personal History: No History of Anesthesia Complications Family History: No Family History of Anesthesia Complications Exercise Tolerance Exercise Tolerance: Metabolic Equivalents>4 Pertinent Negatives Pertinent Negatives: No Symptoms of GERD, No Major Cardiovascular Symptoms or Complaints and No Major Pulmonary Symptoms or Complaints Cardiac & Pulmonary Exam Cardiac Exam: Normal S1/S2 Heart Sounds Pulmonary Exam: Clear Bilateral Breath Sounds Implantable Cardiac Device Does patient have a Pacemaker or an ICD?: No Airway Exam Known Difficult Airway: No Mallampati Class: 2 Mouth Opening: Normal (> 3cm) Thyromental Distance: Greater than 3 cm Neck Range of Motion: Full ROM Neck Circumference: Normal Teeth Condition: Normal Dentition ASA Classification ASA Score: ASA 3 Emergency Case?: No NPO Status NPO Status: NPO Clears >2 hours, Solids >8 hours Anesthesia Plan Resuscitation Status: Full Code Anesthesia Technique: General Anesthesia Airway Planned: Natural Airway Monitors Used: Standard Monitors
[2023-02-02 10:19] VITALS: BMI 32.6
[2023-02-02 11:13] VITALS: BP 122/78; PULSE 90; RESP 24; TEMP 36.5; O2SAT 94
[2023-02-02 11:15] VITALS: BP 132/80; PULSE 88; RESP 19; O2SAT 96
[2023-02-02 11:20] VITALS: BP 129/59; PULSE 88; RESP 17; O2SAT 97
[2023-02-02 11:33] VITALS: BP 115/87; PULSE 76; RESP 16; TEMP 36.1; O2SAT 99
[2023-02-02 12:00] VITALS: BP 142/94; PULSE 78; RESP 17; TEMP 36.9; O2SAT 98
--- NOTE | 2023-02-02 13:58 | W.ANESPOSTOP ---
Postoperative Evaluation Date, Time and Location Date Performed: 02/02/23 Time Performed: 13:59 Patient Location: Day Surgery Unit Vital Signs Most Recent Imported Vital Signs: Most Recent Vital Signs Temp Pulse Resp BP Pulse Ox 36.9 C 78 17 142/94 H 98 02/02/23 12:00 02/02/23 12:00 02/02/23 12:00 02/02/23 12:00 02/02/23 12:00 Pain Score Most Recent Pain Score: Most Recent Pain Score Pain Level 0 02/02/23 12:00 Assessment Mental Status: Awake (Alert & Oriented to Patient Baseline) Airway and Respiratory Function: Patent airway with normal (patient baseline) respiratory exam Cardiovascular Function: Hemodynamically Stable Hydration Status: Adequately Hydrated Nausea & Vomiting: No Nausea or Vomiting Pain: Pt. Denies Any Pain Peripheral Nerve Block: Patient did not receive a nerve block Postoperative Comments:: Seen earlier today and was appropriate for discharge. Denied questions or concerns at that time.
== END 2023-02-02 12:34 | disposition home or self-care (01) ==
PROVIDERS: PCP Physician Assistant; Visit Provider Surgery
PROC: 0DJD8ZZ Inspection of Lower Intestinal Tract, Via Natural or Artificial Opening Endoscopic (ICD-10-PCS; CPT 45378; principal; 2023-02-02 10:15)
DX: Z12.11 Encounter for screening for malignant neoplasm of colon (principal); Z86.010 Personal history of colon polyps
CPT/HCPCS: 45378

== ENCOUNTER 2023-02-27 11:44 | Outpatient (REF) | payer BC, SELFPAY ==
--- NOTE | 2023-02-27 11:24 | PAPFT_PTH ---
PATIENT: Bee Roper LOC: [facility] U#:[id number] AGE/SX: 58/F ROOM: RE02/27/[address]: Herb Antony : 1965 BED: DIS: 02/27/2023 SPEC #: [id number] RECD: 03/03/23 17:10 STATUS: JACOB REKathryn #: [id number] JL: 02/27/23 11:[address]: Herb Antony DEPT: [facility] Cytology RECD BY: Theresa Hart Tissues: 1 - CX/ENDOCX FOR PAP SMEARS Procedures: PAP THIN PREP/UVM Screening Comments: [id number] (UNSATISFACTORY FOR EVALUATION)
== END 2023-02-27 11:45 | disposition home or self-care (01) ==
LOC: NCHCN 11:44
PROVIDERS: PCP Physician Assistant; Visit Provider Physician Assistant
DX: Z12.4 Encounter for screening for malignant neoplasm of cervix (principal)
CPT/HCPCS: 88142

== ENCOUNTER 2023-04-06 02:53 | Outpatient (CLI) | payer BC, SELFPAY ==
[2023-04-06 10:22] LABS: Abs Immature Grans 0.03 10^3/uL (0.0-0.06); Absolute Basophil Count 0.04 10^3/uL (0.0-0.2); Absolute Eosinophil Count 0.15 10^3/uL (0.0-0.7); Absolute Lymphocyte Count 1.49 10^3/uL (1.2-3.4); Absolute Monocyte Count 0.28 10^3/uL (0.1-0.8); Absolute Neutrophil Count 2.73 10^3/uL (1.2-6.7); Basophils % 0.8; Eosinophils % 3.2; HGB 14.2 g/dL (11.2-15.7); Immature Grans % 0.6; Lymphocytes % 31.6; MCH 30.5 pg (27.0-33.0); MCHC 33.8 % (32.0-36.0); MCV 90 fL (80-95); MPV 9.2 fL (8.0-11.0); Monocytes % 5.9; Neutrophils % 57.9; Platelet Count 281 10^3/uL (130-400); RBC 4.65 10^6/uL (3.93-5.22); RDW 12.3 % (11.7-14.6); RDW-SD 40.3 fL; WBC 4.72 10^3/uL (4.4-10.8)
[2023-04-06 11:15] LABS: ALT 28 U/L (14-59); AST 24 U/L (15-37); Albumin 3.7 g/dL (3.4-5.0); Alkaline Phosphatase 138 U/L (46-116); Anion Gap 9.2 mmol/L (3-11); BUN 11 mg/dL (7-18); Bilirubin, Total 1.1 mg/dL (0.2-1.0); CO2 26.8 mmol/L (21.0-32.0); CREATININE 0.9 mg/dL (0.55-1.02); Calcium 9.3 mg/dL (8.5-10.1); Chloride 105 mmol/L (98-107); Estimated GFR 73.19 (mL/min/1.73m2); Glucose 180 mg/dL (74-106); Sodium 141 mmol/L (136-145)
== END 2023-04-06 02:54 | disposition home or self-care (01) ==
LOC: LBO 02:53
PROVIDERS: PCP Physician Assistant; Visit Provider Internal Medicine
DX: C50.412 Malignant neoplasm of upper-outer quadrant of left female breast (principal); Z17.0 Estrogen receptor positive status [ER+]
CPT/HCPCS: 36415; 80053; 85025

== ENCOUNTER 2023-05-17 15:21 | Observation (INO) | payer BC, SELFPAY ==
--- NOTE | 2023-05-17 | DI.CT_ITS ---
Exam(s) CT ABDOMEN PELVIS W EXAM: CT ABDOMEN PELVIS W CLINICAL HISTORY: upper abd pain. TECHNIQUE: Imaging Protocol: Axial computed tomography images with coronal and sagittal reformatted images were created and reviewed CONTRAST MATERIAL: Intravenous: Omnipaque-350 100cc Oral: None COMPARISON: No exams were available for comparison FINDINGS: VISUALIZED LUNG BASES: No nodules nor pleural effusions evident. ABDOMEN: There is no ascites. LIVER: There is a small 6 mm benign cyst in the upper aspect of the right hepatic lobe. No ominous f ocal hepatic lesions. No dilated intrahepatic ducts. GALLBLADDER/BILIARY: There are multiple gallstones. The largest of these measures 3 cm and is the at the level gallbladder neck with mild dilatation of the gallbladder proximal to this. There is a mil d amount of pericholecystic fluid between the gallbladder and right hepatic lobe. There are no calcu li in the CBD and the CBD is not dilated. PANCREAS: No evidence of pancreatic mass nor dilatation of the pancreatic duct. SPLEEN: Spleen is not enlarged. No obvious intrasplenic lesions. Splenic and portal veins are paten t. ADRENALS: There are no significant adrenal masses. KIDNEYS:No cysts evident. No solid renal masses. No calculi nor hydronephrosis.. ABDOMINAL AORTA: Abdominal aorta is not enlarged. LYMPH NODES:There is no retroperitoneal nor paraaortic adenopathy. ABDOMINAL WALL: No evidence of significant anterior abdominal wall nor inguinal hernia. GI: There is no evidence of bowel obstruction, free air, nor abscess. PELVIS: GI: No evidence of appendicitis.No evidence of sigmoid diverticulitis. LYMPH NODES: There is no intrapelvic nor inguinal adenopathy. REPRODUCTIVE: Uterus and adnexal regions appear unremarkable. No free fluid. URINARY BLADDER: No calculi nor obvious masses evident OSSEOUS: No fractures and no significant osseous lesions. Chronic disc space narrowing at L4-5 level. IMPRESSION: 1. The gallbladder is abnormal. Contains multiple stones with the largest calculus string 3 mm and i mpacted at the gallbladder neck level with mild gallbladder distension and some fluid interposed betw een the gallbladder and right hepatic lobe. Consistent with acute cholecystitis. Recommend follow-u p ultrasound. 2. There are no gallstones in the CBD. CBD is not dilated and there is no dilatation of intrahepatic ducts. First read by [facility] RADIATION DOSE DELIVERED: 984.11mGy.cm Total DLP DATA REPOSITORY: All CT scans at this facility are submitted to the National Radiology Data Registry (NRDR) Dose Index Registry (DIR) with the [employer] (ACR). RADIATION OPTIMIZATION: All CT scans at this facility use at least one of these dose optimization te chniques: automated exposure control; mA and/or kV adjustment per patient size (includes targeted exa ms where dose is matched to clinical indication); or iterative reconstruction.
--- NOTE | 2023-05-17 15:15 | RT.EKG_ITS ---
APPROVED REPORT Exam: Resting ECG Reason for Exam: back pain radiating Patient Location: I HR:71 bpm ECG Measurements Heart Rate 71 AXIS RI 166 P 12 QRSd 71 QRS -19 QT 402 T 37 QTc 437 Conclusion Sinus rhythm...normal P axis, V-rate 60- 99 Inferior infarct, old...Q >35mS, II III aVF sinus rhythm, left axis, normal intervals, non ischemic
[2023-05-17 15:27] VITALS: BP 181/91; PULSE 69; RESP 20; TEMP 36.8; O2SAT 98
[2023-05-17 16:12] LABS: Abs Immature Grans 0.02 10^3/uL (0.0-0.06); Absolute Basophil Count 0.03 10^3/uL (0.0-0.2); Absolute Eosinophil Count 0.08 10^3/uL (0.0-0.7); Absolute Lymphocyte Count 1.67 10^3/uL (1.2-3.4); Absolute Monocyte Count 0.45 10^3/uL (0.1-0.8); Absolute Neutrophil Count 3.74 10^3/uL (1.2-6.7); Basophils % 0.5; Eosinophils % 1.3; HCT 40.6 % (36.0-46.0); HGB 13.7 g/dL (11.2-15.7); Immature Grans % 0.3; Lymphocytes % 27.9; MCH 30.1 pg (27.0-33.0); MCHC 33.7 % (32.0-36.0); MCV 89 fL (80-95); Monocytes % 7.5; Neutrophils % 62.5; Platelet Count 292 10^3/uL (130-400); RBC 4.55 10^6/uL (3.93-5.22); RDW 12.6 % (11.7-14.6); RDW-SD 41.6 fL; WBC 5.99 10^3/uL (4.4-10.8)
[2023-05-17] MEDS: Ketorolac 30 MG/ML VIAL IVP (16:25)
[2023-05-17] MEDS: Pantoprazole 40 MG VIAL IVP (16:26)
[2023-05-17] MEDS: Ondansetron 4 MG/2 ML VIAL IVP (16:26)
[2023-05-17] MEDS: Normal Saline 1,000 ML 1000 ML IV (16:26)
[2023-05-17 16:29] LABS: Lipase 49 U/L (16-77)
[2023-05-17 16:32] LABS: ALT 26 U/L (14-59); AST 29 U/L (15-37); Albumin 3.9 g/dL (3.4-5.0); Alkaline Phosphatase 157 U/L (46-116); BUN 13 mg/dL (7-18); Bilirubin, Total 1.3 mg/dL (0.2-1.0); CREATININE 0.8 mg/dL (0.55-1.02); Calcium 9.4 mg/dL (8.5-10.1); Chloride 102 mmol/L (98-107); Glucose 136 mg/dL (74-106); Potassium 4.2 mmol/L (3.5-5.1); Sodium 139 mmol/L (136-145)
[2023-05-17] MEDS: Omnipaque 350 MG/ML 100 ML BTL IJ (16:48)
[2023-05-17] MEDS: Normal Saline - Diluent 50 ML VIAL IJ (16:50)
[2023-05-17 17:13] LABS: Bilirubin Negative (Negative); Blood Small (Negative); Clarity Clear (Clear); Glucose Negative (Negative); Ketones Negative (Negative); Leukocyte Esterase Negative (Negative); Nitrite Negative (Negative); Urobilinogen 0.2 mg/dL (Up to 0.2)
[2023-05-17 17:25] LABS: Bacteria Negative HPF (Negative); C & S Indicated? No; Casts Negative LPF (Negative); Crystals Negative HPF (Negative); Epithelial Cells Rare HPF (Negative); Mucus Negative (Negative); WBC 0-2 HPF (0-5)
--- NOTE | 2023-05-17 17:37 | DI.VRAD_ITS ---
PROCEDURE INFORMATION: Exam: CT Abdomen And Pelvis With Contrast Exam date and time: 05/17/2023 4:54 PM Age: 58 years old Clinical indication: Other: Upper abd pain; Prior surgery; Surgery date: 6+ months; Surgery type: Left breast lumpectomy due to breast CA. Ovaries removed due to breast CA gene TECHNIQUE: Imaging protocol: Computed tomography of the abdomen and pelvis with contrast. Radiation optimization: All CT scans at this facility use at least one of these dose optimization techniques: automated exposure control; mA and/or kV adjustment per patient size (includes targeted exams where dose is matched to clinical indication); or iterative reconstruction. Contrast material: OMNI 350; Contrast volume: 100 ml; Contrast route: INTRAVENOUS (IV); COMPARISON: NM BONE SCAN WHOLE BODY GRP 12/16/2019 11:31 AM FINDINGS: Lungs: Lung bases are clear. Mild bronchiectasis suggesting COPD. Pleural spaces: No pleural effusion. Heart: Normal heart size. No pericardial effusion. No coronary artery atherosclerotic calcium. Liver: Diffuse mild fatty liver change. Medial left hepatic cyst measuring 6 mm. Gallbladder and bile ducts: Multiple gallstones. There is a large gallstone in the gallbladder neck measuring 3.1 cm. Gallbladder is distended. No gallbladder wall thickening. No biliary ductal dilatation. Possible minor pericholecystic fluid. Can not exclude cholecystitis. Pancreas: The pancreas is normal in contour and attenuation. Spleen: The spleen is normal in size, contour and attenuation. Adrenal glands: The adrenal glands are normal in size and contour bilaterally. Kidneys and ureters: The kidneys bilaterally are unremarkable. Normal attenutation. No hydronephrosis. No calculi. Stomach and bowel: Gastric morphology is unremarkable. No edema. No gastric outlet obstruction.Small bowel loops are normal in course and caliber. There is no mucosal edema or bowel wall thickening. No obstructive features.The colon contains formed fecal material. There is no bowel wall thickening. No inflammatory features. No obstruction. Appendix: No evidence of appendicitis. Intraperitoneal space: No free fluid. No free air. Vasculature: Unremarkable. No abdominal aortic aneurysm. Lymph nodes: Unremarkable. No enlarged lymph nodes. Urinary bladder: Urinary bladder is unremarkable in appearance. No wall thickening. No intravesicular calculi. No intravesicular gas. Reproductive: Uterus is unremarkable. Ovaries are reportedly surgically absent. No adnexal mass or cyst. Bones/joints: Unremarkable. No acute fracture. Soft tissues: Abdominal wall soft tissues are unremarkable. Minor fat containing umbilical hernia without acute change. IMPRESSION: 1. Gallbladder disease. Large gallstone which appears to be impacted in the region of the gallbladder neck. There is mild gallbladder distention. Recommend ultrasound follow-up. No biliary dilatation. 2. Mild fatty liver features. 3. Degenerative lumbar spine. No osteoblastic or lytic skeletal lesions. Dictated and Authenticated by: Heath Joiner MD. Ordering:BRENDA Fletcher MD
--- NOTE | 2023-05-17 17:42 | W.ED.GENAD ---
Discharge Plan Disposition Patient Disposition: Admit to [facility] Condition: Stable Discharge Details Clinical Impression: Cholelithiasis Admit Date/Time: 05/17/23 18:54 Admit Provider: Odalis Jimenez Attending Provider: Odalis Jimenez Primary Care Provider: Herb Antony ED Provider: Justine Roper Discharge Data Discharge Date/Time-TO BE ENTERED AT DEPARTURE: 05/17/23 20:14 Medical Decision Making Patient presents for upper abdominal pain. Concern for GI source possible biliary colic. Will obtain IV access check routine labs CBC CMP lipase. CAT scan has been ordered. She received 1 L of IV fluid. Labs and imaging reviewed and most consistent with biliary colic her case is discussed with general surgery. Options do include discharge for outpatient follow-up or admission here for possible cholecystectomy in the a.m. Patient would like to remain here as she states that she would not want to experience that degree of pain again. Report and care of patient has been handed off to Dr. Jimenez Medical Records Medical records reviewed: Yes I reviewed the patient's medical records. Imaging Data Radiologic Study: Radiologist's impression: IMPRESSION: 1. The gallbladder is abnormal.? Contains multiple stones with the largest calculus string 3 mm and impacted at the gallbladder neck level with mild gallbladder distension and some fluid interposed between the gallbladder and right hepatic lobe.? Consistent with acute cholecystitis.? Recommend follow-up ultrasound. 2. There are no gallstones in the CBD.? CBD is not dilated and there is no dilatation of intrahepatic ducts. Lab Data Lab results reviewed: Yes I reviewed the patient's lab results. Labs: Laboratory Tests Range/Units 05/17/23 05/17/23 05/17/23 16:04 16:04 16:04 WBC (4.4-10.8) 10^3/uL 5.99 RBC (3.93-5.22) 10^6/uL 4.55 Hgb (11.2-15.7) g/dL 13.7 Hct (36.0-46.0) % 40.6 MCV (80-95) fL 89 MCH (27.0-33.0) pg 30.1 MCHC (32.0-36.0) % 33.7 RDW (11.7-14.6) % 12.6 Plt Count (130-400) 10^3/uL 292 MPV (8.0-11.0) fL 9.0 Immature Gran % 0.3 Neutrophils % 62.5 Lymphocytes % 27.9 Monocytes % 7.5 Eosinophils % 1.3 Basophils % 0.5 Nucleated RBC % (0.0-0.3) % 0.0 Absolute Neutrophils (1.2-6.7) 10^3/uL 3.74 Absolute Lymphocytes (1.2-3.4) 10^3/uL 1.67 Absolute Monocytes (0.1-0.8) 10^3/uL 0.45 Absolute Eosinophils (0.0-0.7) 10^3/uL 0.08 Absolute Basophils (0.0-0.2) 10^3/uL 0.03 Sodium (136-145) mmol/L 139 Potassium (3.5-5.1) mmol/L 4.2 Chloride (98-107) mmol/L 102 Carbon Dioxide (21.0-32.0) mmol/L 28.0 Anion Gap (3-11) mmol/L 9.0 BUN (7-18) mg/dL 13 Creatinine (0.55-1.02) mg/dL 0.8 Est GFR (CKD-EPI 2020) (mL/min/1.73m2) 84.30 Glucose (74-106) mg/dL 136 H Calcium (8.5-10.1) mg/dL 9.4 Total Bilirubin (0.2-1.0) mg/dL 1.3 H AST (15-37) U/L 29 ALT (14-59) U/L 26 Alkaline Phosphatase (46-116) U/L 157 H Total Protein (6.4-8.2) g/dL 8.0 Albumin (3.4-5.0) g/dL 3.9 Lipase (16-77) U/L 49 Urine Color (Yellow) Urine Clarity (Clear) Urine pH (5-8) Ur Specific [place] (1.005-1.025) Urine Protein (Negative) mg/dL Urine Ketones (Negative) mg/dL Urine Blood (Negative) Urine Nitrite (Negative) Urine Bilirubin (Negative) Urine Urobilinogen (Up to 0.2) mg/dL Ur Leukocyte Esterase (Negative) Urine RBC (0-2) HPF Urine WBC (0-5) HPF Ur Epithelial Cells (Negative) HPF Urine Crystals (Negative) HPF Urine Bacteria (Negative) HPF Urine Casts (Negative) LPF Urine Mucus (Negative) Ur Culture Indicated? Urine Glucose (Negative) mg/dL Range/Units 05/17/23 17:00 WBC (4.4-10.8) 10^3/uL RBC (3.93-5.22) 10^6/uL Hgb (11.2-15.7) g/dL Hct (36.0-46.0) % MCV (80-95) fL MCH (27.0-33.0) pg MCHC (32.0-36.0) % RDW (11.7-14.6) % Plt Count (130-400) 10^3/uL MPV (8.0-11.0) fL Immature Gran % Neutrophils % Lymphocytes % Monocytes % Eosinophils % Basophils % Nucleated RBC % (0.0-0.3) % Absolute Neutrophils (1.2-6.7) 10^3/uL Absolute Lymphocytes (1.2-3.4) 10^3/uL Absolute Monocytes (0.1-0.8) 10^3/uL Absolute Eosinophils (0.0-0.7) 10^3/uL Absolute Basophils (0.0-0.2) 10^3/uL Sodium (136-145) mmol/L Potassium (3.5-5.1) mmol/L Chloride (98-107) mmol/L Carbon Dioxide (21.0-32.0) mmol/L Anion Gap (3-11) mmol/L BUN (7-18) mg/dL Creatinine (0.55-1.02) mg/dL Est GFR (CKD-EPI 2020) (mL/min/1.73m2) Glucose (74-106) mg/dL Calcium (8.5-10.1) mg/dL Total Bilirubin (0.2-1.0) mg/dL AST (15-37) U/L ALT (14-59) U/L Alkaline Phosphatase (46-116) U/L Total Protein (6.4-8.2) g/dL Albumin (3.4-5.0) g/dL Lipase (16-77) U/L Urine Color (Yellow) Yellow Urine Clarity (Clear) Clear Urine pH (5-8) 7.0 Ur Specific [place] (1.005-1.025) 1.020 Urine Protein (Negative) mg/dL Negative Urine Ketones (Negative) mg/dL Negative Urine Blood (Negative) Small H Urine Nitrite (Negative) Negative Urine Bilirubin (Negative) Negative Urine Urobilinogen (Up to 0.2) mg/dL 0.2 Ur Leukocyte Esterase (Negative) Negative Urine RBC (0-2) HPF 5-10 H Urine WBC (0-5) HPF 0-2 Ur Epithelial Cells (Negative) HPF Rare Urine Crystals (Negative) HPF Negative Urine Bacteria (Negative) HPF Negative Urine Casts (Negative) LPF Negative Urine Mucus (Negative) Negative Ur Culture Indicated? No Urine Glucose (Negative) mg/dL Negative HPI General Mode of arrival: ambulatory. Date/Time Provider Initiated Documentation: 05/17/23 15:24. Limitations to Documentation: no limitations. Information obtained by: patient. HPI Narrative: This is a 58-year-old female patient no significant past medical history who reports upper abdominal pain that began this morning. It radiates to her back. She has had minimal nausea as she denies any alleviating or aggravating factors identified. She is not quite sure if it is worsened with eating Related Data Home Medications Medication Instructions Recorded Confirmed atorvastatin 40 mg tablet (Lipitor) 40 mg PO HS 12/03/17 05/17/23 calcium carb-vit D3-minerals 600 2 tab PO DAILY 10/07/19 05/17/23 mg calcium-400 unit tablet escitalopram oxalate 10 mg tablet 10 mg PO HS 10/07/19 05/17/23 calcium carbonate 200 mg calcium 200 mg PO PRN 10/25/19 05/17/23 (500 mg) chewable tablet (Tums) anastrozole 1 mg tablet 1 mg PO DAILY 09/24/20 05/17/23 berberine-herbal comb no.18 capsule 1 cap PO DAILY 01/29/23 05/17/23 Allergies Allergy/AdvReac Type Severity Reaction Status Date / Time No Known Allergies Allergy Verified 05/17/23 15:34 General Stated Complaint: Abd Prob JOHN PAUL: 3 Review of Systems All systems reviewed & are unremarkable except as noted in HPI and below PFSH All Active Problems Cholelithiasis (Acute) Screening for colon cancer (Acute) Mild cognitive impairment (Acute) Sensorineural hearing loss of both ears (Acute) Female cystocele (Acute) Grade 1, asymptomatic Invasive ductal carcinoma of breast, female (Acute) left Medical History Abnormal mammogram of left breast Adenomatous colon polyp Anxiety and depression Family history of cardiovascular disease Fatigue Fibroid uterus Hearing loss, bilateral Herpes zoster Hyperlipidemia Memory loss Obesity PMS (premenstrual syndrome) Prediabetes Weakness of left arm Surgical History Colonoscopy - MAC (01/08/18) H/O lymph node biopsy (~11/08/19) [place] Lymph node biopsy S/P laparoscopic cholecystectomy (~05/18/23) Status post partial mastectomy of left breast (~11/08/19) Family History Maternal Grandmother Breast cancer Social History Smoking/Tobacco Use Status: Never Smoking risk assessment performed?: Yes Alcohol Intake: former Drug use: Never Substance use type: does not use Details: alcohol: years Household members: spouse Housing: house Current gender identity: female Do you feel safe at home: Yes Do you feel safe in your relationship?: Yes Exam Const General: cooperative and no acute distress Nutritional Appearance: obese Orientation: alert, awake and oriented x3 HENMT Head: normal to inspection, normocephalic and atraumatic Mouth: oral mucosae normal Cardio Rate: regular rate Rhythm: regular rhythm GI Inspection: normal to inspection and distended Palpation: soft, not firm, no guarding and tender in the epigastrum, in the LUQ and in the RUQ Auscultation: normal bowel sounds Skin General skin exam: no rashes or lesions noted Neuro General: patient alert, patient awake and patient oriented x3 Extrem General: normal to inspection and full ROM Course Vital Signs Vital signs: Vital Signs Temperature 36.8 C 05/17/23 15:27 Pulse 69 05/17/23 15:27 Respiratory Rate 20 05/17/23 15:27 Blood Pressure 181/91 H 05/17/23 15:27 Pulse Oximetry 98 05/17/23 15:27 Temperature 36.8 C 05/17/23 15:27 Temperature Source Skin 05/17/23 15:27 Pulse 69 08/13/23 15:27 Respiratory Rate 20 05/17/23 15:27 Respiratory Effort Normal 05/17/23 15:31 Blood Pressure 181/91 H 05/17/23 15:27 Blood Pressure Position Sitting 05/17/23 15:27 Pulse Oximetry 98 05/17/23 15:27 Oxygen Delivery Method Room Air 05/17/23 15:27 Oxygen Flow Rate 0 05/17/23 15:27 Pain Level 3 05/17/23 16:08 Lab/Test Results Lab/Test Results: Laboratory Tests Range/Units 05/17/23 05/17/23 05/17/23 16:04 16:04 16:04 WBC (4.4-10.8) 10^3/uL 5.99 RBC (3.93-5.22) 10^6/uL 4.55 Hgb (11.2-15.7) g/dL 13.7 Hct (36.0-46.0) % 40.6 MCV (80-95) fL 89 MCH (27.0-33.0) pg 30.1 MCHC (32.0-36.0) % 33.7 RDW (11.7-14.6) % 12.6 Plt Count (130-400) 10^3/uL 292 MPV (8.0-11.0) fL 9.0 Immature Gran % 0.3 Neutrophils % 62.5 Lymphocytes % 27.9 Monocytes % 7.5 Eosinophils % 1.3 Basophils % 0.5 Nucleated RBC % (0.0-0.3) % 0.0 Absolute Neutrophils (1.2-6.7) 10^3/uL 3.74 Absolute Lymphocytes (1.2-3.4) 10^3/uL 1.67 Absolute Monocytes (0.1-0.8) 10^3/uL 0.45 Absolute Eosinophils (0.0-0.7) 10^3/uL 0.08 Absolute Basophils (0.0-0.2) 10^3/uL 0.03 Sodium (136-145) mmol/L 139 Potassium (3.5-5.1) mmol/L 4.2 Chloride (98-107) mmol/L 102 Carbon Dioxide (21.0-32.0) mmol/L 28.0 Anion Gap (3-11) mmol/L 9.0 BUN (7-18) mg/dL 13 Creatinine (0.55-1.02) mg/dL 0.8 Est GFR (CKD-EPI 2020) (mL/min/1.73m2) 84.30 Glucose (74-106) mg/dL 136 H Calcium (8.5-10.1) mg/dL 9.4 Total Bilirubin (0.2-1.0) mg/dL 1.3 H AST (15-37) U/L 29 ALT (14-59) U/L 26 Alkaline Phosphatase (46-116) U/L 157 H Total Protein (6.4-8.2) g/dL 8.0 Albumin (3.4-5.0) g/dL 3.9 Lipase (16-77) U/L 49 Urine Color (Yellow) Urine Clarity (Clear) Urine pH (5-8) Ur Specific [place] (1.005-1.025) Urine Protein (Negative) mg/dL Urine Ketones (Negative) mg/dL Urine Blood (Negative) Urine Nitrite (Negative) Urine Bilirubin (Negative) Urine Urobilinogen (Up to 0.2) mg/dL Ur Leukocyte Esterase (Negative) Urine RBC (0-2) HPF Urine WBC (0-5) HPF Ur Epithelial Cells (Negative) HPF Urine Crystals (Negative) HPF Urine Bacteria (Negative) HPF Urine Casts (Negative) LPF Urine Mucus (Negative) Ur Culture Indicated? Urine Glucose (Negative) mg/dL Range/Units 05/17/23 17:00 WBC (4.4-10.8) 10^3/uL RBC (3.93-5.22) 10^6/uL Hgb (11.2-15.7) g/dL Hct (36.0-46.0) % MCV (80-95) fL MCH (27.0-33.0) pg MCHC (32.0-36.0) % RDW (11.7-14.6) % Plt Count (130-400) 10^3/uL MPV (8.0-11.0) fL Immature Gran % Neutrophils % Lymphocytes % Monocytes % Eosinophils % Basophils % Nucleated RBC % (0.0-0.3) % Absolute Neutrophils (1.2-6.7) 10^3/uL Absolute Lymphocytes (1.2-3.4) 10^3/uL Absolute Monocytes (0.1-0.8) 10^3/uL Absolute Eosinophils (0.0-0.7) 10^3/uL Absolute Basophils (0.0-0.2) 10^3/uL Sodium (136-145) mmol/L Potassium (3.5-5.1) mmol/L Chloride (98-107) mmol/L Carbon Dioxide (21.0-32.0) mmol/L Anion Gap (3-11) mmol/L BUN (7-18) mg/dL Creatinine (0.55-1.02) mg/dL Est GFR (CKD-EPI 2020) (mL/min/1.73m2) Glucose (74-106) mg/dL Calcium (8.5-10.1) mg/dL Total Bilirubin (0.2-1.0) mg/dL AST (15-37) U/L ALT (14-59) U/L Alkaline Phosphatase (46-116) U/L Total Protein (6.4-8.2) g/dL Albumin (3.4-5.0) g/dL Lipase (16-77) U/L Urine Color (Yellow) Yellow Urine Clarity (Clear) Clear Urine pH (5-8) 7.0 Ur Specific [place] (1.005-1.025) 1.020 Urine Protein (Negative) mg/dL Negative Urine Ketones (Negative) mg/dL Negative Urine Blood (Negative) Small H Urine Nitrite (Negative) Negative Urine Bilirubin (Negative) Negative Urine Urobilinogen (Up to 0.2) mg/dL 0.2 Ur Leukocyte Esterase (Negative) Negative Urine RBC (0-2) HPF 5-10 H Urine WBC (0-5) HPF 0-2 Ur Epithelial Cells (Negative) HPF Rare Urine Crystals (Negative) HPF Negative Urine Bacteria (Negative) HPF Negative Urine Casts (Negative) LPF Negative Urine Mucus (Negative) Negative Ur Culture Indicated? No Urine Glucose (Negative) mg/dL Negative
[2023-05-17 18:29] VITALS: BP 164/78; PULSE 64; RESP 18; TEMP 37; O2SAT 99
--- NOTE | 2023-05-17 18:58 | HPE_ITS ---
Date of service: 05/17/23 Time of Service: 18:58 Assessment and Plan Assessment and plan (1) Cholelithiasis: Status: Acute Assessment and plan: Mrs Roper is a pleasant 58-year-old female who comes into the emergency department with epigastric and right upper quadrant pain which started today. She had 1 episode in the morning which then subsided followed by another episode after lunch. CT scan shows a large stone in the neck of the gallbladder. There is no gallbladder wall thickening and I do not see any pericholecystic fluid. The pain is well controlled with Toradol and Tylenol at this time. She has not had any nausea or vomiting. We discussed the plan of undergoing laparoscopic cholecystectomy tomorrow either by Dr. Roy or myself. I reviewed the procedure with her quickly and told her that we would review it in more detail tomorrow as well as the risks, benefits and complications. Plan: 1. Diet-clear liquids tonight and n.p.o. after midnight 2. DVT prophylaxis-SCDs for tonight we will hold on Lovenox as she will be getting surgery tomorrow. 3. GI prophylaxis-Protonix 40 mg IV daily. 4. Other-we will recheck labs in the morning. No antibiotics for now as her white count is normal. 5. Pain control-Toradol, IV Tylenol and morphine as needed History of Present Illness Consults Consult date: 05/17/23 Requesting physician: Justine Roper Narrative: Mrs Roper is a pleasant 58-year-old female who comes into the emergency department with epigastric and right upper quadrant pain. She states that she started with pain this morning around breakfast time. The pain subsequently resolved but then came back around 2:00 after having lunch. Her pain persisted and she came to the emergency department. She was given some Toradol and the pain resolved. Patient underwent a CT scan which showed a large stone in the neck of the gallbladder. I did review the CT scan myself. I did not see any pericholecystic fluid. There is no gallbladder wall thickening noted and her bile ducts look normal. Her CBC was normal. Her complete metabolic panel showed a total bili of 1.3, AST and ALT were normal and alk phos was slightly elevated at 157. She has been afebrile at home. She has not had any nausea or vomiting. She states that this is the first episode of pain like this that she has had. She does suffer from heartburn and takes omeprazole as needed and Tums as needed. Certainly this could have been her gallbladder causing issues as opposed to gastritis. Her past medical history is other taveras significant for invasive ductal carcinoma of the left breast. She underwent lumpectomy with sentinel lymph node biopsy, she had genetic testing done which showed that she was BRCA positive. She therefore underwent prophylactic laparoscopic oophorectomy. She denies any issues with anesthesia during either 1 of these procedures. She denies any chest pain, history of MIs or strokes, shortness of breath at rest or with activity. Review of Systems Constitutional Constitutional: Denies fever(s), Denies headache(s), Denies poor appetite, Denies weakness and Denies weight loss Eyes Eyes: Denies change in vision ENT Ears, Nose, Mouth, and Throat: Denies dysphagia and Denies headache(s) Cardiovascular Cardiovascular: Denies chest pain, Denies chest pain at rest, Denies irregular heart rhythm, Denies palpitations, Denies dyspnea and Denies dyspnea on exertion Respiratory Respiratory: Denies cough, Denies dyspnea and Denies dyspnea on exertion Gastrointestinal Gastrointestinal: Reports system reviewed and no additional complaints, except as documented and Denies dysphagia Neurologic Neurologic: Denies headache(s) and Denies weakness Endocrine Endocrine: Denies palpitations PFSH All Active Problems Cholelithiasis (Acute) Screening for colon cancer (Acute) Mild cognitive impairment (Acute) Sensorineural hearing loss of both ears (Acute) Female cystocele (Acute) Grade 1, asymptomatic Invasive ductal carcinoma of breast, female (Acute) left Medical History Abnormal mammogram of left breast Adenomatous colon polyp Anxiety and depression Family history of cardiovascular disease Fatigue Fibroid uterus Hearing loss, bilateral Herpes zoster Hyperlipidemia Memory loss Obesity PMS (premenstrual syndrome) Prediabetes Weakness of left arm Surgical History Colonoscopy - MAC (01/08/18) H/O lymph node biopsy (~11/08/19) [place] Lymph node biopsy Status post partial mastectomy of left breast (~11/08/19) Family History Maternal Grandmother Breast cancer Social History Smoking/Tobacco Use Status: Never Smoking risk assessment performed?: Yes Alcohol Intake: former Drug use: Never Substance use type: does not use Details: alcohol: years Household members: spouse Current gender identity: female Do you feel safe at home: Yes Do you feel safe in your relationship?: Yes Meds Allergies and Home Medications Allergies Allergy/AdvReac Type Severity Reaction Status Date / Time No Known Allergies Allergy Verified 05/17/23 15:34 Home Medications Medication Instructions Recorded Confirmed Type atorvastatin 40 mg tablet (Lipitor) 40 mg PO HS 12/03/17 05/17/23 History calcium carb-vit D3-minerals 600 2 tab PO DAILY 10/07/19 05/17/23 History mg calcium-400 unit tablet escitalopram oxalate 10 mg tablet 10 mg PO HS 10/07/19 05/17/23 History calcium carbonate 200 mg calcium 200 mg PO PRN 10/25/19 05/17/23 History (500 mg) chewable tablet (Tums) anastrozole 1 mg tablet 1 mg PO DAILY 09/24/20 05/17/23 History berberine-herbal comb no.18 capsule 1 cap PO DAILY 01/29/23 05/17/23 History Exam Const General: cooperative, healthy appearing and no acute distress Nutritional Appearance: underweight Orientation: alert and oriented x3 HENMT Head: normocephalic and atraumatic Resp Effort & Inspection: normal respiratory effort Auscultation: clear to auscultation bilaterally Cardio Rate: regular rate Rhythm: regular rhythm Heart Sounds: no gallops, no murmurs and no rubs GI Inspection: normal to inspection and scar (well healed) Palpation: soft, no hepatosplenomegaly and tender in the epigastrum (mild, no guarding or rebound) Auscultation: normal bowel sounds Results Imaging Abdomen CT scan report/results: report reviewed and image reviewed CT scan - pelvis: report reviewed and image reviewed Labs 05/17/23 16:04 05/17/23 16:04 Labs: Laboratory Results - last 24 hr 05/17/23 05/17/23 05/17/23 16:04 16:04 16:04 WBC 5.99 RBC 4.55 Hgb 13.7 Hct 40.6 MCV 89 MCH 30.1 MCHC 33.7 RDW 12.6 Plt Count 292 MPV 9.0 Immature Gran % 0.3 Neutrophils % 62.5 Lymphocytes % 27.9 Monocytes % 7.5 Eosinophils % 1.3 Basophils % 0.5 Nucleated RBC % 0.0 Absolute Neutrophils 3.74 Absolute Lymphocytes 1.67 Absolute Monocytes 0.45 Absolute Eosinophils 0.08 Absolute Basophils 0.03 Sodium 139 Potassium 4.2 Chloride 102 Carbon Dioxide 28.0 Anion Gap 9.0 BUN 13 Creatinine 0.8 Est GFR (CKD-EPI 2020) 84.30 Glucose 136 H Calcium 9.4 Total Bilirubin 1.3 H AST 29 ALT 26 Alkaline Phosphatase 157 H Total Protein 8.0 Albumin 3.9 Lipase 49 Urine Color Urine Clarity Urine pH Ur Specific [place] Urine Protein Urine Ketones Urine Blood Urine Nitrite Urine Bilirubin Urine Urobilinogen Ur Leukocyte Esterase Urine RBC Urine WBC Ur Epithelial Cells Urine Crystals Urine Bacteria Urine Casts Urine Mucus Ur Culture Indicated? Urine Glucose 05/17/23 17:00 WBC RBC Hgb Hct MCV MCH MCHC RDW Plt Count MPV Immature Gran % Neutrophils % Lymphocytes % Monocytes % Eosinophils % Basophils % Nucleated RBC % Absolute Neutrophils Absolute Lymphocytes Absolute Monocytes Absolute Eosinophils Absolute Basophils Sodium Potassium Chloride Carbon Dioxide Anion Gap BUN Creatinine Est GFR (CKD-EPI 2020) Glucose Calcium Total Bilirubin AST ALT Alkaline Phosphatase Total Protein Albumin Lipase Urine Color Yellow Urine Clarity Clear Urine pH 7.0 Ur Specific [place] 1.020 Urine Protein Negative Urine Ketones Negative Urine Blood Small H Urine Nitrite Negative Urine Bilirubin Negative Urine Urobilinogen 0.2 Ur Leukocyte Esterase Negative Urine RBC 5-10 H Urine WBC 0-2 Ur Epithelial Cells Rare Urine Crystals Negative Urine Bacteria Negative Urine Casts Negative Urine Mucus Negative Ur Culture Indicated? No Urine Glucose Negative Last Vital Signs Temp 98.6 F 05/17/23 18:29 Pulse 64 05/17/23 18:29 Resp 18 05/17/23 18:29 BP 164/78 H 05/17/23 18:29 Pulse Ox 99 05/17/23 18:29 Time Spent Time spent with Patient: 40-54 minutes Time was spent: preparing to see the patient(eg.review tests), obtaining and/or reviewing separately otained hiistory, ordering medications,tests, procedures, referring, communicating with other health out of school hours care worker, indepentently interpreting results and counseling the patient
[2023-05-17 20:00] VITALS: BP 161/78; PULSE 78; RESP 20; TEMP 36.7; O2SAT 96
[2023-05-17 20:21] VITALS: BP 161/78; PULSE 78; RESP 20; TEMP 36.7; O2SAT 96
[2023-05-17] MEDS: Lactated Ringers 1,000 ML 75 ML IV (20:47)
[2023-05-17] MEDS: Normal Saline Flush 10 ML SYR IVP (20:47)
[2023-05-17] MEDS: Escitalopram 10 MG TAB PO (21:17)
[2023-05-18] VITALS (21 sets, daily range): BP systolic 111–168; BP diastolic 61–89; PULSE 68–87; RESP 11–26; TEMP 36.1–37; O2SAT 90–100; BMI 34.2
[2023-05-18 07:03] LABS: Abs Immature Grans 0.02 10^3/uL (0.0-0.06); Absolute Basophil Count 0.03 10^3/uL (0.0-0.2); Absolute Eosinophil Count 0.12 10^3/uL (0.0-0.7); Absolute Lymphocyte Count 1.78 10^3/uL (1.2-3.4); Absolute Neutrophil Count 2.22 10^3/uL (1.2-6.7); Basophils % 0.7; Eosinophils % 2.6; HCT 36.7 % (36.0-46.0); HGB 12.4 g/dL (11.2-15.7); Immature Grans % 0.4; Lymphocytes % 38.9; MCH 30.2 pg (27.0-33.0); MCHC 33.8 % (32.0-36.0); MCV 90 fL (80-95); MPV 9.3 fL (8.0-11.0); Monocytes % 8.8; Neutrophils % 48.6; Platelet Count 262 10^3/uL (130-400); RDW 12.8 % (11.7-14.6); RDW-SD 42.4 fL; WBC 4.57 10^3/uL (4.4-10.8)
[2023-05-18 07:16] LABS: ALT 21 U/L (14-59); AST 17 U/L (15-37); Albumin 3.3 g/dL (3.4-5.0); Alkaline Phosphatase 125 U/L (46-116); Anion Gap 6.3 mmol/L (3-11); BUN 11 mg/dL (7-18); Bilirubin, Total 1.5 mg/dL (0.2-1.0); CO2 27.7 mmol/L (21.0-32.0); CREATININE 0.7 mg/dL (0.55-1.02); Calcium 7.9 mg/dL (8.5-10.1); Chloride 106 mmol/L (98-107); Estimated GFR 98.95 (mL/min/1.73m2); Glucose 99 mg/dL (74-106); Potassium 4.1 mmol/L (3.5-5.1); Sodium 140 mmol/L (136-145); Total Protein 6.8 g/dL (6.4-8.2)
[2023-05-18] MEDS: Lactated Ringers 1,000 ML 75 ML IV ×2 (07:40→22:38)
[2023-05-18] MEDS: Pantoprazole 40 MG VIAL IVP (07:40)
--- NOTE | 2023-05-18 08:33 | PGE_ITS ---
Date of Service Date of service: 05/18/23 Time of Service: 08:33 Assessment and Plan Assessment and plan (1) Cholelithiasis: Status: Acute Assessment and plan: Mrs Roper is a pleasant 58-year-old female who comes into the emergency department with epigastric and right upper quadrant pain which started today. She had 1 episode in the morning which then subsided followed by another episode after lunch. CT scan shows a large stone in the neck of the gallbladder. There is no gallbladder wall thickening and I do not see any pericholecystic fluid. The pain is well controlled with Toradol and Tylenol at this time. She has not had any nausea or vomiting. We discussed the plan of undergoing laparoscopic cholecystectomy today. I discussed the pathophysiology as well as the procedure in detail using a pamphlet. I gave her a pamphlet on what to expect after surgery as well. After discussing the risks, benefits and complications as well as the procedure the patient wishes to proceed. She has a good understanding of the complications. Risks, benefits, complications were reviewed with the patient in the office. Complications include but are not limited to bleeding, infection, injury to stomach, small bowel and large bowel, injury to the pancreas, injury to the common bile duct necessitating drainage and referral to tertiary center for repair, bile leak, adverse reactions to the medications, complications of intubation including a sore throat or injury to the uvula, VT, stroke and even . Questions were entertained and answered to her satisfaction and she wished to proceed. No guarantees were given or implied. Proceed with laparoscopic cholecystectomy with possible intraoperative cholangiogram today. Subjective Subjective Interval history since last seen: Ms. Roper is a pleasant 58-year-old female who was admitted yesterday through the emergency department for epigastric and right upper quadrant pain. She is doing quite well this morning. Her pain has subsided at this time. I reviewed her labs which are normal. She was able to tolerate clear liquids yesterday she is n.p.o. today. Her vitals have been stable and she is afebrile. Exam Const General: cooperative, comfortable and no acute distress Orientation: alert and oriented x3 HENMT Head: normocephalic and atraumatic Resp Effort & Inspection: normal respiratory effort Auscultation: clear to auscultation bilaterally Cardio Rate: regular rate Rhythm: regular rhythm Heart Sounds: no gallops, no murmurs and no rubs GI Inspection: normal to inspection Palpation: soft, no hepatosplenomegaly and nontender Auscultation: normal bowel sounds Objective Last Vital Signs Temp 97.5 F L 05/18/23 07:02 Pulse 72 05/18/23 07:02 Resp 16 05/18/23 07:02 BP 151/89 H 05/18/23 07:02 Pulse Ox 94 05/18/23 07:02 Laboratory Results - last 24 hr 05/17/23 05/17/23 05/17/23 16:04 16:04 16:04 WBC 5.99 RBC 4.55 Hgb 13.7 Hct 40.6 MCV 89 MCH 30.1 MCHC 33.7 RDW 12.6 Plt Count 292 MPV 9.0 Immature Gran % 0.3 Neutrophils % 62.5 Lymphocytes % 27.9 Monocytes % 7.5 Eosinophils % 1.3 Basophils % 0.5 Nucleated RBC % 0.0 Absolute Neutrophils 3.74 Absolute Lymphocytes 1.67 Absolute Monocytes 0.45 Absolute Eosinophils 0.08 Absolute Basophils 0.03 Sodium 139 Potassium 4.2 Chloride 102 Carbon Dioxide 28.0 Anion Gap 9.0 BUN 13 Creatinine 0.8 Est GFR (CKD-EPI 2020) 84.30 Glucose 136 H Calcium 9.4 Total Bilirubin 1.3 H AST 29 ALT 26 Alkaline Phosphatase 157 H Total Protein 8.0 Albumin 3.9 Lipase 49 Urine Color Urine Clarity Urine pH Ur Specific [place] Urine Protein Urine Ketones Urine Blood Urine Nitrite Urine Bilirubin Urine Urobilinogen Ur Leukocyte Esterase Urine RBC Urine WBC Ur Epithelial Cells Urine Crystals Urine Bacteria Urine Casts Urine Mucus Ur Culture Indicated? Urine Glucose 05/17/23 05/18/23 05/18/23 17:00 06:10 06:10 WBC 4.57 RBC 4.10 Hgb 12.4 Hct 36.7 MCV 90 MCH 30.2 MCHC 33.8 RDW 12.8 Plt Count 262 MPV 9.3 Immature Gran % 0.4 Neutrophils % 48.6 Lymphocytes % 38.9 Monocytes % 8.8 Eosinophils % 2.6 Basophils % 0.7 Nucleated RBC % 0.0 Absolute Neutrophils 2.22 Absolute Lymphocytes 1.78 Absolute Monocytes 0.40 Absolute Eosinophils 0.12 Absolute Basophils 0.03 Sodium 140 Potassium 4.1 Chloride 106 Carbon Dioxide 27.7 Anion Gap 6.3 BUN 11 Creatinine 0.7 Est GFR (CKD-EPI 2020) 98.95 Glucose 99 Calcium 7.9 L Total Bilirubin 1.5 H AST 17 ALT 21 Alkaline Phosphatase 125 H Total Protein 6.8 Albumin 3.3 L Lipase Urine Color Yellow Urine Clarity Clear Urine pH 7.0 Ur Specific [place] 1.020 Urine Protein Negative Urine Ketones Negative Urine Blood Small H Urine Nitrite Negative Urine Bilirubin Negative Urine Urobilinogen 0.2 Ur Leukocyte Esterase Negative Urine RBC 5-10 H Urine WBC 0-2 Ur Epithelial Cells Rare Urine Crystals Negative Urine Bacteria Negative Urine Casts Negative Urine Mucus Negative Ur Culture Indicated? No Urine Glucose Negative Time Spent with Patient Time Spent with Patient: 25-34 minutes Time was spent: preparing to see the patient(eg.review tests), indepentently interpreting results and counseling the patient
--- NOTE | 2023-05-18 08:48 | PDOC.CMIN ---
Date of service: 05/18/23 Time of Service: 08:48 Care Management Initial Assmt Initial Assessment REASON FOR HOSPITALIZATION:: RUQ pain, cholelithiasis PREVIOUS FUNCTIONAL STATUS/SOCIAL/FAMILY SUPPORTS:: Bee lives in a single family home in [place], [place] with her Luther. Together they have 6 children and 13 grandchildren. 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 She does not need any ambulatory devices or equipment and does not receive any community assistance. CURRENT FUNCTIONAL STATUS:: Bee was sitting up in bed when CM met with her. She was polite and willing to engage in conversation. She is scheduled to go to surgery for a laparoscopic cholecystectomy today. Bee stated that she does not anticipate the need for any new services. She will likely discharge home tonight or tomorrow. ADVANCE DIRECTIVES:: does not have AD Has patient been provided with info about the portal/API?: Yes Did the patient sign up for the portal?: Yes CODE STATUS:: Full Code INSURANCE COVERAGE / FINANCIAL ISSUES:: BC/BS out of state CURRENT HOME/COMMUNITY SERVICES/EQUIPMENT:: none PRIMARY CARE PHYSICIAN:: Herb Antony POTENTIAL DISCHARGE NEEDS:: Follow up with PCP, surgeon and plan of care PATIENT/FAMILY EDUCATION NEEDS:: Review of discharge instructions, limitations, activity, follow up plan, discuss [employer] TRANSPORTATION:: via private vehicle with family PLAN:: Bee will likely be discharged home with no new services. She will follow up with her community providers and plan of care and transport with family. CM will follow and support discharge planning needs. PFSH All Active Problems Cholelithiasis (Acute) Screening for colon cancer (Acute) Mild cognitive impairment (Acute) Sensorineural hearing loss of both ears (Acute) Female cystocele (Acute) Grade 1, asymptomatic Invasive ductal carcinoma of breast, female (Acute) left Medical History Abnormal mammogram of left breast Adenomatous colon polyp Anxiety and depression Family history of cardiovascular disease Fatigue Fibroid uterus Hearing loss, bilateral Herpes zoster Hyperlipidemia Memory loss Obesity PMS (premenstrual syndrome) Prediabetes Weakness of left arm Surgical History Colonoscopy - MAC (01/08/18) H/O lymph node biopsy (~11/08/19) [place] Lymph node biopsy Status post partial mastectomy of left breast (~11/08/19) Family History Maternal Grandmother Breast cancer Social History Smoking/Tobacco Use Status: Never Smoking risk assessment performed?: Yes Alcohol Intake: former Drug use: Never Substance use type: does not use Details: alcohol: years Household members: spouse Housing: house Current gender identity: female Do you feel safe at home: Yes Do you feel safe in your relationship?: Yes
--- NOTE | 2023-05-18 09:11 | W.ANESPRE ---
General Info Date of Service Date Performed: 05/18/23 Height: 5 ft 3 in Weight: 87.543 kg Body Mass Index (BMI): 34.2 Surgical Procedure: Operation Date: 05/18/23 13:10 Proposed Procedure Side Surgeon p Cholecystectomy Laparoscopic Odalis Jimenez MD Meds Allergies and Home Medications Allergies Allergy/AdvReac Type Severity Reaction Status Date / Time No Known Allergies Allergy Verified 05/17/23 15:34 Home Medication Medication Instructions Recorded atorvastatin 40 mg tablet (Lipitor) 40 mg PO HS 12/03/17 calcium carb-vit D3-minerals 600 2 tab PO DAILY 10/07/19 mg calcium-400 unit tablet escitalopram oxalate 10 mg tablet 10 mg PO HS 10/07/19 calcium carbonate 200 mg calcium 200 mg PO PRN 10/25/19 (500 mg) chewable tablet (Tums) anastrozole 1 mg tablet 1 mg PO DAILY 09/24/20 berberine-herbal comb no.18 capsule 1 cap PO DAILY 01/29/23 Current Visit Medications: Current Medications Generic Name Dose Route Start Last Admin Trade Name Freq PRN Reason Stop Dose Admin Al Hydrox/Mg Hydrox/Simethicone 30 ml 05/17/23 18:54 Mylanta Suspension 30 Ml Cup PO Q4H PRN PRN Anastrozole 1 mg 05/18/23 08:30 Anastrozole 1 Mg Tab PO DAILY RANDY Escitalopram Oxalate 10 mg 05/17/23 22:00 05/17/23 21:17 Escitalopram 10 Mg Tab PO 10 mg HS RANDY Administration Sodium Chloride 500 mls @ 0 mls/hr 05/17/23 18:54 Saline 500ml Bag IV PRN PRN As Directed Ringer's Solution 1,000 mls @ 75 mls/hr 05/17/23 20:00 05/18/23 07:40 IV 75 mls/hr INFUSION RANDY Administration Acetaminophen 1,000 mg in 100 mls @ 400 mls/hr 05/17/23 18:54 Ofirmev IVPB Q8H PRN PRN IV Miscellaneous Supplies 1 each 05/17/23 19:00 Iv Access IV DIRECTED RANDY Ketorolac Tromethamine 15 mg 05/17/23 18:54 Ketorolac 15 Mg/Ml Vial IVP 05/22/23 18:53 Q6H PRN PRN Morphine Sulfate 2 mg 05/17/23 18:54 Morphine 2 Mg/Ml Syr IVP Q1H PRN PRN Ondansetron HCl 4 mg 05/17/23 18:54 Ondansetron 4 Mg/2 Ml Vial IVP Q4H PRN PRN Pantoprazole Sodium 40 mg 05/18/23 08:00 05/18/23 07:40 Pantoprazole 40 Mg Vial IVP 40 mg Q24H RANDY Administration Simethicone 80 mg 05/17/23 18:54 Simethicone 80 Mg Chew PO Q4H PRN PRN Sodium Chloride 0 ml 05/17/23 18:54 05/17/23 20:47 Normal Saline Flush 10 Ml Syr IVP 10 ml PRN PRN Administration PFSH Active Problems Active Problems: Problem Status Onset Code Cholelithiasis K80.20 Screening for colon cancer Z12.11 Mild cognitive impairment G31.84 Sensorineural hearing loss of both ears H90.3 Female cystocele N81.10 Invasive ductal carcinoma of breast, female C50.919 Medical History Medical History Abnormal mammogram of left breast Adenomatous colon polyp Anxiety and depression Family history of cardiovascular disease Fatigue Fibroid uterus Hearing loss, bilateral Herpes zoster Hyperlipidemia Memory loss Obesity PMS (premenstrual syndrome) Prediabetes Weakness of left arm Surgical History Surgical History Colonoscopy - MAC (01/08/18) H/O lymph node biopsy (~11/08/19) [place] Lymph node biopsy Status post partial mastectomy of left breast (~11/08/19) Tobacco Smoking/Tobacco Use Status: Never Alcohol Alcohol Intake: former Substance Use Substance use: Never Substance use type: does not use Details: alcohol: years Vital Signs and Lab Results Vital Signs Most Recent Vital Signs in EMR: Most Recent Vital Signs Temp Pulse Resp BP Pulse Ox 36.4 C L 72 16 151/89 H 94 05/18/23 07:02 05/18/23 07:02 05/18/23 07:02 05/18/23 07:02 05/18/23 07:02 Lab Results 05/18/23 06:10 05/18/23 06:10 Blood Type / Crossmatch: No Data to Display Complete Blood Count: White Blood Count 4.57 10^3/uL (4.4-10.8) 05/18/23 06:10 Red Blood Count 4.10 10^6/uL (3.93-5.22) 05/18/23 06:10 Hemoglobin 12.4 g/dL (11.2-15.7) 05/18/23 06:10 Hematocrit 36.7 % (36.0-46.0) 05/18/23 06:10 Platelet Count 262 10^3/uL (130-400) 05/18/23 06:10 Complete Metabolic Panel: Sodium 140 mmol/L (136-145) 05/18/23 06:10 Potassium 4.1 mmol/L (3.5-5.1) 05/18/23 06:10 Chloride 106 mmol/L (98-107) 05/18/23 06:10 Carbon Dioxide 27.7 mmol/L (21.0-32.0) 05/18/23 06:10 BUN 11 mg/dL (7-18) 05/18/23 06:10 Creatinine 0.7 mg/dL (0.55-1.02) 05/18/23 06:10 Est GFR (CKD-EPI 2020) 98.95 (mL/min/1.73m2) 05/18/23 06:10 Calcium 7.9 mg/dL (8.5-10.1) L 05/18/23 06:10 Albumin 3.3 g/dL (3.4-5.0) L 05/18/23 06:10 Glucose 99 mg/dL (74-106) 05/18/23 06:10 Liver Function Panel: Alanine Aminotransferase (ALT/SGPT) 21 U/L (14-59) 05/18/23 06:10 Aspartate Amino Transf (AST/SGOT) 17 U/L (15-37) 05/18/23 06:10 Coagulation Panel: No Data to Display Cardiac Panel: No Data to Display Arterial Blood Gas: No Data to Display Venous Blood Gas: No Data to Display Pancreas Panel: Lipase 49 U/L (16-77) 05/17/23 16:04 Thyroid Panel: No Data to Display Infectious Disease: No Data to Display Blood Cultures: No Data to Display Toxicology Panel: No Data to Display Imaging and Studies Imaging and Studies Study information below may be from another EMR and interpreted by another provider. Please see original notes in EMR for more complete details. EKG Summary: 05/17/23: NSR, Old Inferior Infarct Anesthesia Assessment and Plan Anesthesia History Personal History: No History of Anesthesia Complications Family History: No Family History of Anesthesia Complications Exercise Tolerance Exercise Tolerance: Metabolic Equivalents>4 Implantable Cardiac Device Does patient have a Pacemaker or an ICD?: No Airway Exam Known Difficult Airway: No Mallampati Class: 2 Mouth Opening: Normal (> 3cm) Thyromental Distance: Greater than 3 cm Neck Range of Motion: Full ROM Neck Circumference: Normal Teeth Condition: Normal Dentition ASA Classification ASA Score: ASA 3 Emergency Case?: No NPO Status NPO Status: NPO Clears >2 hours, Solids >8 hours Anesthesia Plan Resuscitation Status: Full Code Anesthesia Technique: General Anesthesia Airway Planned: Endotracheal Tube Monitors Used: Standard Monitors
[2023-05-18] MEDS: Anastrozole 1 MG TAB PO (11:03)
[2023-05-18] MEDS: ACETAMINOPHEN 1,000 MG/100 ML BTL 400 MG IVPB (11:06)
--- NOTE | 2023-05-18 11:32 | ANES.PREOP_ITS ---
General Info Date of Service Date Performed: 05/18/23 Height: 5 ft 3 in Weight: 87.543 kg Body Mass Index (BMI): 34.2 Surgical Procedure: Operation Date: 05/18/23 13:10 Proposed Procedure Side Surgeon p Cholecystectomy Laparoscopic Odalis Jimenez MD Meds Allergies and Home Medications Allergies Allergy/AdvReac Type Severity Reaction Status Date / Time No Known Allergies Allergy Verified 05/17/23 15:34 Home Medication Medication Instructions Recorded atorvastatin 40 mg tablet (Lipitor) 40 mg PO HS 12/03/17 calcium carb-vit D3-minerals 600 2 tab PO DAILY 10/07/19 mg calcium-400 unit tablet escitalopram oxalate 10 mg tablet 10 mg PO HS 10/07/19 calcium carbonate 200 mg calcium 200 mg PO PRN 10/25/19 (500 mg) chewable tablet (Tums) anastrozole 1 mg tablet 1 mg PO DAILY 09/24/20 berberine-herbal comb no.18 capsule 1 cap PO DAILY 01/29/23 Current Visit Medications: Current Medications Generic Name Dose Route Start Last Admin Trade Name Freq PRN Reason Stop Dose Admin Al Hydrox/Mg Hydrox/Simethicone 30 ml 05/17/23 18:54 Mylanta Suspension 30 Ml Cup PO Q4H PRN PRN Anastrozole 1 mg 05/18/23 08:30 05/18/23 11:03 Anastrozole 1 Mg Tab PO 1 mg DAILY RNADY Administration Escitalopram Oxalate 10 mg 05/17/23 22:00 05/17/23 21:17 Escitalopram 10 Mg Tab PO 10 mg HS RANDY Administration Sodium Chloride 500 mls @ 0 mls/hr 05/17/23 18:54 Saline 500ml Bag IV PRN PRN As Directed Ringer's Solution 1,000 mls @ 75 mls/hr 05/17/23 20:00 05/18/23 07:40 IV 75 mls/hr INFUSION RANDY Administration Acetaminophen 1,000 mg in 100 mls @ 400 mls/hr 05/17/23 18:54 05/18/23 11:06 Ofirmev IVPB 400 mls/hr Q8H PRN PRN Administration IV Miscellaneous Supplies 1 each 05/17/23 19:00 Iv Access IV DIRECTED RANDY Ketorolac Tromethamine 15 mg 05/17/23 18:54 Ketorolac 15 Mg/Ml Vial IVP 05/22/23 18:53 Q6H PRN PRN Morphine Sulfate 2 mg 05/17/23 18:54 Morphine 2 Mg/Ml Syr IVP Q1H PRN PRN Ondansetron HCl 4 mg 05/17/23 18:54 Ondansetron 4 Mg/2 Ml Vial IVP Q4H PRN PRN Pantoprazole Sodium 40 mg 05/18/23 08:00 05/18/23 07:40 Pantoprazole 40 Mg Vial IVP 40 mg Q24H RANDY Administration Simethicone 80 mg 05/17/23 18:54 Simethicone 80 Mg Chew PO Q4H PRN PRN Sodium Chloride 0 ml 05/17/23 18:54 05/17/23 20:47 Normal Saline Flush 10 Ml Syr IVP 10 ml PRN PRN Administration PFSH Active Problems Active Problems: Problem Status Onset Code Cholelithiasis K80.20 Screening for colon cancer Z12.11 Mild cognitive impairment G31.84 Sensorineural hearing loss of both ears H90.3 Female cystocele N81.10 Invasive ductal carcinoma of breast, female C50.919 Medical History Medical History Abnormal mammogram of left breast Adenomatous colon polyp Anxiety and depression Family history of cardiovascular disease Fatigue Fibroid uterus Hearing loss, bilateral Herpes zoster Hyperlipidemia Memory loss Obesity PMS (premenstrual syndrome) Prediabetes Weakness of left arm Surgical History Surgical History Colonoscopy - MAC (01/08/18) H/O lymph node biopsy (~11/08/19) [place] Lymph node biopsy Status post partial mastectomy of left breast (~11/08/19) Tobacco Smoking/Tobacco Use Status: Never Alcohol Alcohol Intake: former Substance Use Substance use: Never Substance use type: does not use Details: alcohol: years Vital Signs and Lab Results Vital Signs Most Recent Vital Signs in EMR: Most Recent Vital Signs Temp Pulse Resp BP Pulse Ox 37 C 68 16 111/75 95 05/18/23 11:23 05/18/23 11:23 05/18/23 11:23 05/18/23 11:23 05/18/23 11:23 Lab Results 05/18/23 06:10 05/18/23 06:10 Blood Type / Crossmatch: No Data to Display Complete Blood Count: White Blood Count 4.57 10^3/uL (4.4-10.8) 05/18/23 06:10 Red Blood Count 4.10 10^6/uL (3.93-5.22) 05/18/23 06:10 Hemoglobin 12.4 g/dL (11.2-15.7) 05/18/23 06:10 Hematocrit 36.7 % (36.0-46.0) 05/18/23 06:10 Platelet Count 262 10^3/uL (130-400) 05/18/23 06:10 Complete Metabolic Panel: Sodium 140 mmol/L (136-145) 05/18/23 06:10 Potassium 4.1 mmol/L (3.5-5.1) 05/18/23 06:10 Chloride 106 mmol/L (98-107) 05/18/23 06:10 Carbon Dioxide 27.7 mmol/L (21.0-32.0) 05/18/23 06:10 BUN 11 mg/dL (7-18) 05/18/23 06:10 Creatinine 0.7 mg/dL (0.55-1.02) 05/18/23 06:10 Est GFR (CKD-EPI 2020) 98.95 (mL/min/1.73m2) 05/18/23 06:10 Calcium 7.9 mg/dL (8.5-10.1) L 05/18/23 06:10 Albumin 3.3 g/dL (3.4-5.0) L 05/18/23 06:10 Glucose 99 mg/dL (74-106) 05/18/23 06:10 Liver Function Panel: Alanine Aminotransferase (ALT/SGPT) 21 U/L (14-59) 05/18/23 06: 10 Aspartate Amino Transf (AST/SGOT) 17 U/L (15-37) 05/18/23 06:10 Coagulation Panel: No Data to Display Cardiac Panel: No Data to Display Arterial Blood Gas: No Data to Display Venous Blood Gas: No Data to Display Pancreas Panel: Lipase 49 U/L (16-77) 05/17/23 16:04 Thyroid Panel: No Data to Display Infectious Disease: No Data to Display Blood Cultures: No Data to Display Toxicology Panel: No Data to Display Anesthesia Assessment and Plan Anesthesia History Personal History: No History of Anesthesia Complications Family History: No Family History of Anesthesia Complications Exercise Tolerance Exercise Tolerance: Metabolic Equivalents>4 Pertinent Negatives Pertinent Negatives: No Symptoms of GERD Cardiac & Pulmonary Exam Cardiac Exam: Normal S1/S2 Heart Sounds Pulmonary Exam: Clear Bilateral Breath Sounds Implantable Cardiac Device Does patient have a Pacemaker or an ICD?: No Airway Exam Known Difficult Airway: No Mallampati Class: 2 Mouth Opening: Normal (> 3cm) Thyromental Distance: Greater than 3 cm Neck Range of Motion: Full ROM Neck Circumference: Normal Teeth Condition: Normal Dentition ASA Classification ASA Score: ASA 2 Emergency Case?: No NPO Status NPO Status: NPO Clears >2 hours, Solids >8 hours Anesthesia Plan Resuscitation Status: Full Code Anesthesia Technique: General Anesthesia Airway Planned: Endotracheal Tube Monitors Used: Standard Monitors
[2023-05-18] MEDS: Lactated Ringers 1,000 ML 30 ML IV (12:39)
[2023-05-18] MEDS: Cellulose,Oxidized 4X8 1 PACKET MC (13:32)
--- NOTE | 2023-05-18 13:42 | GB_PTH ---
PATIENT: Bee Roper LOC: U#:[id number] AGE/SX: 58/F ROOM: RE05/17/[address]: Odalis Jimenez MD : 1965 BED: A DIS: 05/19/2023 SPEC #: [id number] RECD: 05/18/23 14:24 STATUS: JACOB REQ #: [id number] JL: 05/18/23 13:[address]: Odalis Jimenez DEPT: Surgical Specimen RECD BY: Aleta Rizvi ENTERED: 05/18/23 14:25 SP TYPE: GB OTHR DR: Herb Antony Tissues: 1 - GALLBLADDER Procedures: GROSS AND MICRO LEVEL 3 Comments: [id number]
[2023-05-18] MEDS: Bupivacaine 0.25% Pres-Free 30 ML VIAL (13:58)
[2023-05-18] MEDS: HYDROmorphone 2 MG/ML SYR IVP ×2 (14:53→15:09)
[2023-05-18] MEDS: Normal Saline 10 ML VIAL (14:55)
--- NOTE | 2023-05-18 15:06 | ROE_ITS ---
Date of service: 05/18/23 Time of Service: 15:07 Operative Note Operative Note DATE OF PROCEDURE: 05/18/23 PRE-OP DIAGNOSIS: Biliary Colic POST-OP DIAGNOSIS: same (acute on chronic cholecystitis) PROCEDURE: Laparoscopic Cholecystectomy SURGEON: Odalis Jimenez TRAILER [employer] TRUCK DRIVER: Oleg Geiger ANESTHESIA TYPE: Local By Surgeon and General LMA/ETT Refer to Anesthesia Record ESTIMATED BLOOD LOSS: 50 PATHOLOGY: other (Gallbladder and stone) COMPLICATIONS: None Patient was transported to: PACU Patient's condition: stable Indications: Ms. Roper is a pleasant 58-year-old female who was admitted yesterday evening with symptoms of biliary colic for 12 hours. This morning she was pain-free. We discussed the risks, benefits and complications of the procedure. We discussed possible open procedure. I used a pamphlet to show her the anatomy. After conversation she had a good understanding of the procedure as well as the risks, benefits and complications and she wished to proceed. Risks, benefits, complications were reviewed with the patient in the office. Complications include but are not limited to bleeding, infection, injury to stomach, small bowel and large bowel, injury to the pancreas, injury to the common bile duct necessitating drainage and referral to tertiary center for repair, bile leak, adverse reactions to the medications, complications of intubation including a sore throat or injury to the uvula, NV, stroke and even . Questions were entertained and answered to her satisfaction and she wished to proceed. No guarantees were given or implied. Findings: Intrahepatic gallbladder, thickened gallbladder wall and 4 cm gallstone. Procedure Description: After informed consent was obtained the patient was brought to the operating room, placed in a supine position and monitors were applied. SCDs were applied to her lower extremities and she was placed under general anesthesia and intubated without difficulty. Her abdomen was then prepped and draped in a sterile fashion using ChloraPrep. At this point a timeout was done and the patient's name, date of , procedure type, allergies to medications, metal in her body, antibiotic and DVT prophylaxis was reviewed. Fire risk was assessed. At this point 0.25% Bupivocaine was injected just above the umbilicus into the dermis and subcutaneous tissue. A 5 mm incision was made with an 11 blade. The subcutaneous tissue was dissected with a hemostat down to the fascia. The skin next to the incision was grasped with penetrating towel clamps and while pulling up on the skin a 5 mm port was placed under direct visualization. The abdomen was insuflated and then 3 more ports were placed. A 12 mm port was placed in the subxiphoid area and two 5 mm ports were placed in the right upper quadrant. The liver was inspected.. The liver seemed enlarged especially the left lobe which came around the falciform ligament and partly obscured the gallbladder. The top of the gallbladder was noted to be intrahepatic. The patient's bed was then turned to the left and her head was brought up. The gallbladder was grasped at the body and pushed towards the right shoulder, this allowed me to visualize the neck of the gallbladder. There was a large stone measuring about 4 cm lodged in the neck of the gallbladder. The stone was gently milked up into the body so that I could more easily grasped the neck, and pulle it towards the right flank and down allowing me to visualize the lymph node. Using a [place] dissector with cautery the lymph node was gently dissected away from the tissues and the fatty tissue was also dissected away. The cystic duct was identified it was normal in size. The duct was dissected 360 degrees using the [place] dissector in order for me to visualize its entrance into the gallbladder. Liver was noted behind it. There were no other structures right behind. Critical view was achieved. 3 clips were placed one proximal and 2 distal and the cystic duct was cut. The cystic artery was then identified and dissected 360 degrees. It was located just medial to the cystic duct. It was visualized going into the gallbladder. Once dissected 3 more clips were placed one proximal and 2 distal and the artery was cut. Using the hook dissector the gallbladder was then dissected away from the liver bed with some difficulty due to the dense adhesions. Once completely dissected away from the liver it was placed into an Endo Catch bag and pulled through the 12 mm port site. The incision at the subxiphoid area needed to be widened to 4 cm in order for the stone to be able to be removed. The 12 mm port was placed back into the abdomen under direct visualization. The liver bed was inspected. There was some oozing noted from the liver. The abdomen was irrigated with 1 L of saline. Surgicel was then applied to the liver bed and pressure was held with a Ray- Cat. The Ray-Cat and Surgicel were then removed and taken back out of the abdominal cavity. The abdomen is irrigated with another liter of fluid and the effluent was clear towards the end. No more bleeding was noted from the liver bed at this time. The clips were inspected and noted to be in good position. Once all the fluid was suctioned out, the 12 mm and the 2 right upper quadrant ports were removed under direct visualization and no bleeding was noted from the fascia. The abdomen was deflated completely and lastly the umbilical port was removed. The 4 cm subxiphoid incision was closed with 0 Vicryl running suture. The skin was cleaned and the incisions were closed with 4-0 Monocryl. The skin was dried and mastasol and steri-strips were applied. Needle, instrument and sponge counts were correct at the end of the case. At this point the patient was woken up, extubated and taken back to recovery in stable condition. There were no immediate complications.
--- NOTE | 2023-05-18 15:39 | W.ANESPOSTOP ---
Postoperative Evaluation Date, Time and Location Date Performed: 05/18/23 Time Performed: 15:39 Patient Location: PACU Vital Signs Most Recent Imported Vital Signs: Most Recent Vital Signs Temp Pulse Resp BP Pulse Ox 36.2 C L 82 11 L 144/88 H 95 05/18/23 15:23 05/18/23 15:23 05/18/23 15:23 05/18/23 15:23 05/18/23 15:23 Pain Score Most Recent Pain Score: Most Recent Pain Score Pain Level 5 05/18/23 15:23 Assessment Mental Status: Arousable with meaningful communication Airway and Respiratory Function: Patent airway with normal (patient baseline) respiratory exam Cardiovascular Function: Hemodynamically Stable Hydration Status: Adequately Hydrated Nausea & Vomiting: No Nausea or Vomiting Pain: Pain is tolerable per patient Peripheral Nerve Block: Patient did not receive a nerve block
[2023-05-18] MEDS: Escitalopram 10 MG TAB PO (21:14)
[2023-05-19 03:03] VITALS: BP 132/81; PULSE 84; RESP 16; TEMP 36.9; O2SAT 94
[2023-05-19 07:10] VITALS: BP 118/76; PULSE 76; RESP 16; TEMP 36.6; O2SAT 95
--- NOTE | 2023-05-19 07:19 | W.PM.PROGNOT ---
Date of Service Date of service: 05/19/23 Time of Service: 07:00 Assessment and Plan Assessment and plan (1) Cholelithiasis: Status: Acute (2) S/P laparoscopic cholecystectomy: Assessment and plan: Bee is doing well postop day #1 from her laparoscopic cholecystectomy. I did have some oozing from the liver so I am awaiting hemoglobin checked this morning. I will give her regular diet. If she is able to tolerate a diet and her hemoglobin is stable then I will discharge her home today on a low-fat diet. Subjective Subjective Interval history since last seen: Bee is doing well postop day #1 from her laparoscopic cholecystectomy. She is sore in the epigastric and right upper quadrant area along her incisions. She has tolerated clear liquids and some crackers last night. She feels hungry. She has had no fevers overnight. I discussed her surgery with her. It was a difficult surgery due to a lot of inflammation as well as a large 4 cm gallstone. Exam Const General: cooperative, comfortable and no acute distress HENWY Head: normocephalic and atraumatic Resp Effort & Inspection: normal respiratory effort Auscultation: clear to auscultation bilaterally Cardio Rate: regular rate Rhythm: regular rhythm GI Inspection: incision (dressings with a small amount of serosanguinous discharge) Palpation: soft, no hepatosplenomegaly and tender (appropriately tender around incisions) Auscultation: normal bowel sounds Objective Last Vital Signs Temp 97.9 F 05/19/23 07:10 Pulse 76 05/19/23 07:10 Resp 16 05/19/23 07:10 BP 118/76 05/19/23 07:10 Pulse Ox 95 05/19/23 07:10 Time Spent with Patient Time Spent with Patient: <25 minutes Time was spent: obtaining and/or reviewing separately otained hiistory, indepentently interpreting results and counseling the patient
[2023-05-19] MEDS: Pantoprazole 40 MG VIAL IVP (08:23)
[2023-05-19] MEDS: Anastrozole 1 MG TAB PO (08:23)
[2023-05-19 09:02] LABS: HCT 36.7 % (36.0-46.0); HGB 12.3 g/dL (11.2-15.7)
--- NOTE | 2023-05-19 09:17 | W.PM.DS.N ---
Date of service: 05/19/23 Time of Service: 09:17 DS: Diagnosis Discharge Diagnosis (1) Cholelithiasis: Status: Acute (2) S/P laparoscopic cholecystectomy: Discharge Plan Disposition Patient Disposition: Home Condition: Stable Discharge Details Reason For Visit: Biliary Cholic Admit Date/Time: 05/17/23 18:54 Admit Provider: Odalis Jimenez Attending Provider: Odalis Jimenez Primary Care Provider: Herb Antony Hospital Course Hospital Course: Ms. Roper is a very pleasant 58-year-old female was admitted on May 17 with biliary colic. She had 2 episodes of severe pain in the same day. She was taken to the operating room on May 18 and underwent laparoscopic cholecystectomy which was challenging secondary to a large left lobe of the liver which was partially obscuring the gallbladder as well as a thickened and inflamed gallbladder and a large 4 cm gallbladder stone. I elected to keep her 1 more night to make sure that the oozing from the liver would not restart. She did well overnight and her hemoglobin was stable the next day. She was eating and drinking without difficulty. She had appropriate tenderness in the right upper quadrant and epigastric area around her incisions. I discussed the surgery with her as well as signs and symptoms of infection, bile leak that she needs to call me with right away. We reviewed a low-fat diet which she should follow for the next couple of weeks. And I will see her in follow-up in the office in 10 to 14 days. Home Meds and New Rx's Prescriptions: Continued calcium carbonate [Tums] 200 mg calcium (500 mg) tablet,chewable 200 mg PO PRN anastrozole 1 mg tablet 1 mg PO DAILY berberine-herbal comb no.18 Capsule 1 cap PO DAILY atorvastatin [Lipitor] 40 MG tablet 40 mg PO HS calcium carbonate-vit D3-min 600 mg calcium- 400 unit tablet 2 tab PO DAILY escitalopram oxalate 10 mg tablet 10 mg PO HS Discharge Instructions Instructions: Heart Healthy Diet (DC), Laparoscopic Cholecystectomy (DC) Additional Instructions: Activity at Home after surgery: 1. Make sure you walk outside at least 4 times per day 2. You should be able to climb a flight of stairs 3. No driving while in pain or taking pain medications 4. No strenuous activity or heavy lifting (no more the 5 lb) for 2 weeks (laparoscopic surgery) Diet, Nutrition, & wound healin. Avoid alcohol until after you are recovered from your surgery 2. Make sure to eat plenty of lean protein (meat, fish, eggs, cottage cheese, beans) 3. Eat a variety of fruits and vegetables. Eat plenty of high fiber foods to avoid constipation. 4. Drink plenty of liquids to stay hydrated and avoid constipation Pain Medications: 1. Tylenol 650mg every 6 hours as needed and Ibuprofen 600 mg every 6 hours as needed. You may alternate between the 2 medications every 3 hours 2. If a narcotic has been prescribed take as directed only for breakthrough pain For Constipation: 1. Take Milk of Magnesia or MiraLax as needed for constipation Other: 1. You may shower daily. Do not scrub the incisions 2. Do not soak the incisions for 1 week 3. You may alternate ice and heat as needed for pain and swelling 4. May leave the incisions open to air or cover with a bandaid 5. Remove the dressing placed in the Hospital tomorrow 05/20 Wound Care: 1. Keep the incisions clean and dry Please call our office if you develop: 1. Fevers >101.5 2. Nausea or Vomiting 3. Worsening pain 4. Redness and thick discharge from the wounds If after hours please call the Hospital at and ask to speak to the on-call surgeon Dr. Jimenez's cell phone: (If no answer I may not have cell service). If it is urgent please call the hospital or our office Referrals: Odalis Jimenez MD [ [facility] STAFF PHYSICIAN] - 06/01/23 8:00 am Activity:: see above Equipment/Supplies:: No Equipment Needed Diet:: low fat Discharge Orders Discharge Orders: Discharge Order (Routine); Ordered 05/19/23 Ordered By: Odalis Jimenez DS: Summary Time Spent with Patient providing and/or coordinating discharge services: Greater than 30 minutes Status at Discharge Functional status at discharge: independent ambulation Overall status at discharge: patient is back to baseline Mental Status: mental status grossly normal Speech and Movement: speech and movement normal Mood: congruent mood Affect: normal affect Exam Psych Mental Status: mental status grossly normal Speech and Movement: speech and movement normal Mood: congruent mood Affect: normal affect DS: Data Vitals/I&O Vitals and I&O: Vital Signs Temperature 97.9 F 05/19/23 07:10 Temperature Source Tympanic 05/19/23 07:10 Pulse 76 05/19/23 07:10 Pulse Rhythm Regular 05/18/23 20:19 Respiratory Rate 16 05/19/23 07:10 Respiratory Effort Normal, Non-Labored 05/18/23 20:19 Respiratory Depth Normal 05/18/23 20:19 Respiratory Pattern Normal 05/18/23 20:19 Blood Pressure 118/76 05/19/23 07:10 Blood Pressure Position Sitting 05/17/23 15:27 Pulse Oximetry 95 05/19/23 07:10 Respiratory End-tidal CO2 31 05/18/23 15:23 Oxygen Delivery Method Room Air 05/19/23 07:10 Oxygen Flow Rate 0 05/19/23 07:10 Pain Level 0 05/19/23 07:10 Comment VS post activity; RN informed of BP 05/18/23 17:56 Intake & Output 05/18/23 05/18/23 05/19/23 11:59 23:59 11:59 Intake Total 926.25 / 2526.25 1600 / 2526.25 Output Total 1350 / 1825 475 / 1825 1100 / 1100 Balance -423.75 / 701.25 1125 / 701.25 -1100 / -1100 Weight 193 lb Intake: IV 926.25 / 2526.25 1600 / 2526.25 Output: Urine 1350 / 1825 475 / 1825 1100 / 1100 Other: Urine Color Yellow Yellow Yellow Urine Appearance Clear Clear Clear Urine Odor Normal Emesis Description None Voiding Methods Toilet Toilet Toilet Data Completed and Pending Labs on day of discharge: Labs from last 24 hours 05/19/23 08:52 Hgb 12.3 Hct 36.7 PFSH All Active Problems Cholelithiasis (Acute) Screening for colon cancer (Acute) Mild cognitive impairment (Acute) Sensorineural hearing loss of both ears (Acute) Female cystocele (Acute) Grade 1, asymptomatic Invasive ductal carcinoma of breast, female (Acute) left Medical History Abnormal mammogram of left breast Adenomatous colon polyp Anxiety and depression Family history of cardiovascular disease Fatigue Fibroid uterus Hearing loss, bilateral Herpes zoster Hyperlipidemia Memory loss Obesity PMS (premenstrual syndrome) Prediabetes Weakness of left arm Surgical History Colonoscopy - MAC (01/08/18) H/O lymph node biopsy (~11/08/19) [place] Lymph node biopsy S/P laparoscopic cholecystectomy (~05/18/23) Status post partial mastectomy of left breast (~11/08/19) Family History Maternal Grandmother Breast cancer Social History Smoking/Tobacco Use Status: Never Smoking risk assessment performed?: Yes Alcohol Intake: former Drug use: Never Substance use type: does not use Details: alcohol: years Household members: spouse Housing: house Current gender identity: female Do you feel safe at home: Yes Do you feel safe in your relationship?: Yes Time Spent with Patient Time Spent with Patient: <45 minutes Time was spent: counseling the patient
--- NOTE | 2023-05-19 11:49 | PDOC.CMDIS ---
Date of service: 05/19/23 Time of Service: 11:49 LACE Index Scoring Tool Questions: Length of Stay (in days): 2 Was the patient admitted via the E.D.?: Yes Comorbidities: Any Tumor E.D. Visits: 1 Answers: Total Score: 8 Risk of Readmission: Low Risk Care Management Discharge Plan Reason for Hospitalization: RUQ pain, cholelithiasis Discharge Plan: Bee will be discharged home with no new services. She will follow up with her community providers and plan of care and transport with family. Patient/Family Education Needs: Review of discharge instructions, limitations, activity, follow up plan, discuss Ask Me Three
== END 2023-05-19 10:34 | disposition home or self-care (01) ==
LOC: ER 19:23 → MS 20:15
PROVIDERS: Surgery; Admitting Provider Surgery; Emergency Provider Nurse Practitioner Acute Care; PCP Physician Assistant; Visit Provider Surgery
PROC: 0FT44ZZ Resection of Gallbladder, Percutaneous Endoscopic Approach (ICD-10-PCS; CPT 47562; principal; 2023-05-18 13:00)
DX: K80.12 Calculus of gallbladder with acute and chronic cholecystitis without obstruction (principal); G31.84 Mild cognitive impairment of uncertain or unknown etiology; F41.8 Other specified anxiety disorders; H90.3 Sensorineural hearing loss, bilateral; E66.9 Obesity, unspecified; Z68.34 Body mass index [BMI] 34.0-34.9, adult; R73.03 Prediabetes; E78.5 Hyperlipidemia, unspecified; Z86.010 Personal history of colon polyps
CPT/HCPCS: 47562; 36415; 80053; 83690; 93005; 96361; 96365; 96374; 96375; 96376; 99285; 74177; 81003; 81015; 85014; 85018; 85025; 88304; 93010; 99284; G0378; J0131; J0690; J1100; J1170; J1885; J2001; J2250; J2405; J2704; J3010; J3490

== ENCOUNTER → 2023-06-01 01:32 | Outpatient (CLI) | payer BC, SELFPAY ==
--- NOTE | 2023-06-01 | DI.MAMMO_ITS ---
Exam(s) MG MAMMO SCREENING 60 MIN DUR EXAM: MG MAMMO SCREENING 60 MIN DUR CLINICAL HISTORY: S/P LT BREAST XRT, YEARLY SCREENING, Z12.31, PERSONAL H/O BREAST CA TECHNIQUE: Mammograms were interpreted according to the usual protocol including computer analysis w [employer] CAD system, tomosynthesis and C-view imaging. COMPARISON: 2017 through 25 November 2022 FINDINGS: The breasts are composed of scattered fibroglandular densities, Breast Density category B. No suspicious masses or suspicious microcalcifications are seen. Post lumpectomy changes upper outer quadrant. Surgical clips noted. Biopsy marker clip. No axillary lymph nodes are seen. There has been no significant change from prior exams. IMPRESSION: BI-RADS Cat 2 - Benign Findings. Yearly screening mammography is recommended. Breast Density - Category B, scattered fibroglandular densities. A negative radiographic report should not delay biopsy if a dominant or clinically suspicious mass is present. Up to ten percent of cancers are not identified on mammography. A negative report may reinforce clinical impression. Adenosis and dense breasts may obscure an underlying neoplasm. False positive reports average 6 to 10%. Patient will receive a letter notifying them of these results.
== END ==
PROVIDERS: PCP Physician Assistant; Visit Provider Radiology Radiation Oncology
DX: Z12.31 Encounter for screening mammogram for malignant neoplasm of breast (principal)
CPT/HCPCS: 77063; 77067

== ENCOUNTER 2023-06-17 17:50 | Outpatient (REF) | payer BC, SELFPAY ==
[2023-06-17 16:13] LABS: Hemoglobin A1C 6.1 % (<5.7)
[2023-06-17 16:47] LABS: ALT 28 U/L (14-59); AST 20 U/L (15-37); Alkaline Phosphatase 121 U/L (46-116); Anion Gap 12.1 mmol/L (3-11); BUN 8 mg/dL (7-18); Bilirubin, Total 1.4 mg/dL (0.2-1.0); CO2 23.9 mmol/L (21.0-32.0); CREATININE 0.7 mg/dL (0.55-1.02); Calcium 8.5 mg/dL (8.5-10.1); Calculated LDL 77 mg/dL (<100); Chloride 106 mmol/L (98-107); Cholesterol 185 mg/dL (<200); Estimated GFR 98.95 (mL/min/1.73m2); Glucose 125 mg/dL (74-106); HDL Cholesterol 40 mg/dL (40-60); Potassium 3.8 mmol/L (3.5-5.1); Sodium 142 mmol/L (136-145); Total Protein 7.7 g/dL (6.4-8.2); Triglyceride 340 mg/dL (<150)
== END 2023-06-17 17:51 | disposition home or self-care (01) ==
LOC: NCHCN 17:50
PROVIDERS: PCP Physician Assistant; Visit Provider Physician Assistant
DX: E11.9 Type 2 diabetes mellitus without complications (principal); E78.5 Hyperlipidemia, unspecified
CPT/HCPCS: 80053; 80061; 83036

== ENCOUNTER 2023-10-15 03:38 | Outpatient (CLI) | payer BC, SELFPAY ==
[2023-10-15 12:39] LABS: Abs Immature Grans 0.02 10^3/uL (0.0-0.06); Absolute Basophil Count 0.03 10^3/uL (0.0-0.2); Absolute Eosinophil Count 0.05 10^3/uL (0.0-0.7); Absolute Lymphocyte Count 2.02 10^3/uL (1.2-3.4); Absolute Monocyte Count 0.38 10^3/uL (0.1-0.8); Absolute Neutrophil Count 3.03 10^3/uL (1.2-6.7); Basophils % 0.5; Eosinophils % 0.9; HCT 38.7 % (36.0-46.0); HGB 13.3 g/dL (11.2-15.7); Immature Grans % 0.4; Lymphocytes % 36.5; MCH 30.4 pg (27.0-33.0); MCHC 34.4 % (32.0-36.0); MCV 88 fL (80-95); MPV 9.8 fL (8.0-11.0); Monocytes % 6.9; Neutrophils % 54.8; Platelet Count 276 10^3/uL (130-400); RBC 4.38 10^6/uL (3.93-5.22); RDW 12.6 % (11.7-14.6); RDW-SD 40.8 fL; WBC 5.53 10^3/uL (4.4-10.8)
[2023-10-15 12:53] LABS: ALT 28 U/L (14-59); AST 27 U/L (15-37); Albumin 3.9 g/dL (3.4-5.0); Alkaline Phosphatase 117 U/L (46-116); BUN 11 mg/dL (7-18); Bilirubin, Total 1.5 mg/dL (0.2-1.0); CREATININE 0.8 mg/dL (0.55-1.02); Calcium 9.6 mg/dL (8.5-10.1); Chloride 106 mmol/L (98-107); Glucose 144 mg/dL (74-106); Potassium 3.5 mmol/L (3.5-5.1); Sodium 141 mmol/L (136-145); Total Protein 7.8 g/dL (6.4-8.2)
== END 2023-10-15 03:39 | disposition home or self-care (01) ==
PROVIDERS: Internal Medicine; PCP Physician Assistant; Visit Provider Physician Assistant
DX: C50.412 Malignant neoplasm of upper-outer quadrant of left female breast (principal); Z17.0 Estrogen receptor positive status [ER+]
CPT/HCPCS: 36415; 80053; 82043; 82570; 85025

== ENCOUNTER → 2023-11-12 00:57 | Outpatient (CLI) | payer BC, SELFPAY ==
--- NOTE | 2023-11-12 | DI.CT_ITS ---
Exam(s) CT CHEST/ABD/PEL W EXAM: CT CHEST/ABD/PEL W CLINICAL HISTORY: LT BREAST CA,C50.912,Z17.0,ELEVATED LFT'S,R79.89. TECHNIQUE: Imaging Protocol: Axial computed tomography images with coronal and sagittal reformatted images were created and reviewed CONTRAST MATERIAL: Intravenous: Omnipaque 350 Contrast volume:100 ml Oral: yes 1 900 mL Readi-Cat COMPARISON: CT CT ABDOMEN PELVIS W from 05/17/2023 FINDINGS: CHEST: Tracheobronchial tree: Patent where visualized. Pulmonary parenchyma: No consolidation or dominant measurable mass. Pleura: No effusion or pneumothorax. Lymph nodes: Within normal limits. Aorta: Thoracic portion non-dilated. Heart: No pericardial effusion. Bones: Degenerative disc changes prominent endplate osteophytes. No lytic or blastic lesions.No comp ression fractures. Soft tissues: Surgical clips and area of scarring in the posterior lateral left breast. Surgical cli ps in the left axilla. ABDOMEN and PELVIS: Liver: Normal size and density. No measurable mass. Stable tiny hypodensity consistent with a cyst . Gallbladder and biliary tract: Status post cholecystectomy. No biliary dilatation. Pancreas: Normal density, no abnormal calcifications or inflammatory process. Spleen: Normal. Kidneys: Normal size, contour and axis. No radiodense stones. No obstructive uropathy. No suspicious masses seen. Adrenal glands: No masses seen. Aorta: Abdominal portion non-dilated. Lymph nodes: Within normal limits. Soft tissues: Tiny fatty containing umbilical hernia.. Bladder: Unremarkable. Bowel: No obstruction or bowel wall thickening. Peritoneal cavity: No ascites. No focal collection. No mesenteric inflammatory response. Bones: Unremarkable for age. No lytic or blastic lesions. Reproductive organs: Within normal limits. IMPRESSION: No evidence of metastatic disease in the chest, abdomen or pelvis.. RADIATION DOSE DELIVERED: 2,102.55mGy.cm Total DLP DATA REPOSITORY: All CT scans at this facility are submitted to the National Radiology Data Registry (NRDR) Dose Index Registry (DIR) with the [employer] (A[employer]). RADIATION OPTIMIZATION: All CT scans at this facility use at least one of these dose optimization te chniques: automated exposure control; mA and/or kV adjustment per patient size (includes targeted exa ms where dose is matched to clinical indication); or iterative reconstruction.
[2023-11-12 13:29] LABS: Abs Immature Grans 0.02 10^3/uL (0.0-0.06); Absolute Basophil Count 0.01 10^3/uL (0.0-0.2); Absolute Eosinophil Count 0.04 10^3/uL (0.0-0.7); Absolute Neutrophil Count 2.53 10^3/uL (1.2-6.7); Basophils % 0.2; Eosinophils % 0.8; HCT 37.2 % (36.0-46.0); HGB 12.9 g/dL (11.2-15.7); Immature Grans % 0.4; MCH 30.3 pg (27.0-33.0); MCHC 34.7 % (32.0-36.0); MCV 87 fL (80-95); MPV 9.8 fL (8.0-11.0); Neutrophils % 50.6; Platelet Count 243 10^3/uL (130-400); RBC 4.26 10^6/uL (3.93-5.22); RDW 12.5 % (11.7-14.6); RDW-SD 39.7 fL
[2023-11-12 13:37] LABS: ALT 32 U/L (14-59); AST 22 U/L (15-37); Albumin 3.9 g/dL (3.4-5.0); Alkaline Phosphatase 111 U/L (46-116); Anion Gap 8.6 mmol/L (3-11); BUN 10 mg/dL (7-18); Bilirubin, Total 1.3 mg/dL (0.2-1.0); CO2 28.4 mmol/L (21.0-32.0); CREATININE 0.7 mg/dL (0.55-1.02); Calcium 9.8 mg/dL (8.5-10.1); Chloride 105 mmol/L (98-107); Estimated GFR 98.95 (mL/min/1.73m2); Glucose 120 mg/dL (74-106); Sodium 142 mmol/L (136-145); Total Protein 7.8 g/dL (6.4-8.2)
[2023-11-12] MEDS: Barium Sulfate 2% W/V-Berry Smoothie 450 ML BTL PO ×2 (14:35→14:36)
[2023-11-12] MEDS: Omnipaque 350 MG/ML 100 ML BTL IJ (14:59)
[2023-11-12] MEDS: Normal Saline - Diluent 50 ML VIAL IJ (14:59)
== END ==
PROVIDERS: PCP Physician Assistant; Visit Provider Internal Medicine
DX: C50.912 Malignant neoplasm of unspecified site of left female breast (principal); R79.89 Other specified abnormal findings of blood chemistry; Z17.0 Estrogen receptor positive status [ER+]
CPT/HCPCS: 74177; 80053; 71260; 85025; J3490

== ENCOUNTER 2024-05-18 03:09 | Outpatient (CLI) | payer BC, SELFPAY ==
[2024-05-18 12:51] LABS: Abs Immature Grans 0.02 10^3/uL (0.0-0.06); Absolute Basophil Count 0.04 10^3/uL (0.0-0.2); Absolute Eosinophil Count 0.07 10^3/uL (0.0-0.7); Absolute Lymphocyte Count 2.04 10^3/uL (1.2-3.4); Absolute Monocyte Count 0.37 10^3/uL (0.1-0.8); Absolute Neutrophil Count 3.35 10^3/uL (1.2-6.7); Basophils % 0.7 %; Eosinophils % 1.2 %; HCT 40.5 % (36.0-46.0); HGB 13.8 g/dL (11.2-15.7); Immature Grans % 0.3 %; Lymphocytes % 34.6 %; MCH 30.5 pg (27.0-33.0); MCHC 34.1 % (32.0-36.0); MCV 89 fL (80-95); MPV 9.5 fL (8.0-11.0); Monocytes % 6.3 %; Neutrophils % 56.9 %; Platelet Count 289 10^3/uL (130-400); RBC 4.53 10^6/uL (3.93-5.22); RDW 12.3 % (11.7-14.6); RDW-SD 40.5 fL; WBC 5.89 10^3/uL (4.4-10.8)
[2024-05-18 13:07] LABS: ALT 20 U/L (14-59); AST 18 U/L (15-37); Albumin 3.8 g/dL (3.4-5.0); Alkaline Phosphatase 138 U/L (46-116); Anion Gap 10.3 mmol/L (3-11); BUN 14 mg/dL (7-18); Bilirubin, Total 1.39 mg/dL (0.2-1.0); CO2 27.7 mmol/L (21.0-32.0); CREATININE 0.9 mg/dL (0.55-1.02); Calcium 9.7 mg/dL (8.5-10.1); Chloride 104 mmol/L (98-107); Estimated GFR 72.73 (mL/min/1.73m2); Glucose 155 mg/dL (74-106); Potassium 3.7 mmol/L (3.5-5.1); Sodium 142 mmol/L (136-145); Total Protein 7.9 g/dL (6.4-8.2)
== END 2024-05-18 03:10 | disposition home or self-care (01) ==
PROVIDERS: Internal Medicine; PCP Physician Assistant; Visit Provider Nurse Practitioner
DX: C50.912 Malignant neoplasm of unspecified site of left female breast (principal); Z17.0 Estrogen receptor positive status [ER+]
CPT/HCPCS: 36415; 80053; 85025

== ENCOUNTER 2024-06-02 02:04 | Outpatient (CLI) | payer BC, SELFPAY ==
--- NOTE | 2024-06-02 | DI.MAMMO_ITS ---
Exam(s) MG MAMMO SCREENING 60 MIN DUR EXAM: MG MAMMO SCREENING 60 MIN DUR CLINICAL HISTORY: BREAST CA, SCREENING, Z12.31, S/P LT BREAST CA X 4 YRS TECHNIQUE: Mammograms were interpreted according to the usual protocol including computer analysis w [employer] CAD system, tomosynthesis and C-view imaging. COMPARISON: 2017 through 2022 FINDINGS: The breasts are composed of scattered fibroglandular densities, Breast Density category B. No suspicious masses or suspicious microcalcifications are seen. Post lumpectomy scarring in the upp er outer quadrant of the left breast. No skin thickening or abnormal axillary lymph nodes are seen. Surgical clips visible in the left axi lla. There has been no significant change from prior exams. IMPRESSION: BI-RADS Category 2 - Benign Findings Yearly screening mammography is recommended. Breast Density - Category B, scattered fibroglandular densities. A negative radiographic report should not delay biopsy if a dominant or clinically suspicious mass is present. Up to ten percent of cancers are not identified on mammography. A negative report may reinforce clinical impression. Adenosis and dense breasts may obscure an underlying neoplasm. False positive reports average 6 to 10%. Patient will receive a letter notifying them of these results.
== END 2024-06-02 02:24 ==
LOC: DI 02:04
PROVIDERS: PCP Physician Assistant; Visit Provider Radiology Radiation Oncology
DX: Z12.31 Encounter for screening mammogram for malignant neoplasm of breast (principal); Z85.3 Personal history of malignant neoplasm of breast
CPT/HCPCS: 77063; 77067

== ENCOUNTER 2024-09-07 14:12 | Outpatient (REF) | payer BC, SELFPAY ==
[2024-09-07 20:14] LABS: ALT 21 U/L (14-59); AST 20 U/L (15-37); Albumin 3.9 g/dL (3.4-5.0); Alkaline Phosphatase 130 U/L (46-116); BUN 10 mg/dL (7-18); Bilirubin, Total 1.27 mg/dL (0.2-1.0); CREATININE 0.7 mg/dL (0.55-1.02); Calcium 9.3 mg/dL (8.5-10.1); Calculated LDL 74 mg/dL (<100); Chloride 106 mmol/L (98-107); Cholesterol 158 mg/dL (<200); Estimated GFR 98.34 (mL/min/1.73m2); Glucose 92 mg/dL (74-106); HDL Cholesterol 42 mg/dL (40-60); Potassium 4.2 mmol/L (3.5-5.1); Sodium 144 mmol/L (136-145); Total Protein 7.4 g/dL (6.4-8.2); Triglyceride 210 mg/dL (<150)
[2024-09-07 21:00] LABS: COMMENT (LAB VIEW ONLY) 156.44 mg/dL; Microalb ug/mg Crea 16.5 ug/mg Cr
[2024-09-07 21:14] LABS: Hemoglobin A1C 6.4 % (<5.7)
[2024-09-09 14:51] LABS: ANA Interpretation Positive (Negative); ANA Titer Pattern 1:160 Speckled
[2024-09-10 15:13] LABS: Mitochondrial Ab, M2 <0.1 U
== END 2024-09-07 14:13 | disposition home or self-care (01) ==
LOC: NCHCN 14:12
PROVIDERS: PCP Physician Assistant; Visit Provider Physician Assistant
DX: R74.8 Abnormal levels of other serum enzymes (principal); E78.5 Hyperlipidemia, unspecified; E11.9 Type 2 diabetes mellitus without complications
CPT/HCPCS: 80053; 80061; 83516; 82043; 82570; 83036; 86038

== ENCOUNTER 2024-10-21 00:18 | Outpatient (CLI) | payer BC, SELFPAY ==
--- NOTE | 2024-10-21 | DI.DEXA_ITS ---
Exam(s) XR DEXA BONE DENSITY W/WO TYRELL EXAM: XR DEXA BONE DENSITY W/WO TYRELL CLINICAL HISTORY: Malignant neoplasm of lt breast, estrogen receptor +, unspecified site, TECHNIQUE: COMPARISON: CR XR DEXA BONE DENSITY W/WO TYRELL from 09/16/2022 FINDINGS: Lateral Spine Image: Unremarkable. No compression deformities identified. Left hip: Total T-Score: -0.1. This compares to -0.2 on the prior examination. Total Z-Score: 0.9 T- and Z-scores: Within normal limits. Lumbar Spine: Total T-Score: -1.2. This compares to -1.4 on the prior examination. Total Z-Score: 0.3 T- and Z-scores: Findings are consistent with osteopenia. There is no evidence of osteoporosis. IMPRESSION: No evidence of osteoporosis. There is osteopenia seen in the lumbar spine.
== END 2024-10-21 00:38 ==
LOC: DI 00:19
PROVIDERS: PCP Physician Assistant; Visit Provider Nurse Practitioner
DX: Z13.820 Encounter for screening for osteoporosis (principal); Z17.0 Estrogen receptor positive status [ER+]; C50.412 Malignant neoplasm of upper-outer quadrant of left female breast
CPT/HCPCS: 77080

== ENCOUNTER 2024-11-24 01:18 | Outpatient (CLI) | payer BC, SELFPAY ==
[2024-11-24 12:38] LABS: Abs Immature Grans 0.02 10^3/uL (0.0-0.06); Absolute Basophil Count 0.04 10^3/uL (0.0-0.2); Absolute Eosinophil Count 0.17 10^3/uL (0.0-0.7); Absolute Lymphocyte Count 2.34 10^3/uL (1.2-3.4); Absolute Monocyte Count 0.49 10^3/uL (0.1-0.8); Absolute Neutrophil Count 2.94 10^3/uL (1.2-6.7); Basophils % 0.7 %; Eosinophils % 2.8 %; HCT 38.8 % (36.0-46.0); HGB 13.2 g/dL (11.2-15.7); Immature Grans % 0.3 %; MCH 30.8 pg (27.0-33.0); MCV 91 fL (80-95); MPV 9.4 fL (8.0-11.0); Monocytes % 8.2 %; Platelet Count 280 10^3/uL (130-400); RBC 4.28 10^6/uL (3.93-5.22); RDW 12.6 % (11.7-14.6); RDW-SD 41.2 fL
[2024-11-24 12:59] LABS: ALT 24 U/L (14-59); AST 23 U/L (15-37); Albumin 3.9 g/dL (3.4-5.0); Alkaline Phosphatase 136 U/L (46-116); Anion Gap 6.7 mmol/L (3-11); BUN 8 mg/dL (7-18); Bilirubin, Total 0.98 mg/dL (0.2-1.0); CO2 31.3 mmol/L (21.0-32.0); CREATININE 0.8 mg/dL (0.55-1.02); Calcium 9.4 mg/dL (8.5-10.1); Chloride 106 mmol/L (98-107); Estimated GFR 83.78 (mL/min/1.73m2); Glucose 115 mg/dL (74-106); Potassium 3.7 mmol/L (3.5-5.1); Sodium 144 mmol/L (136-145); Total Protein 7.7 g/dL (6.4-8.2)
== END 2024-11-24 01:19 | disposition home or self-care (01) ==
LOC: LBO 01:18
PROVIDERS: PCP Physician Assistant; Visit Provider Internal Medicine
DX: C50.912 Malignant neoplasm of unspecified site of left female breast (principal); Z17.0 Estrogen receptor positive status [ER+]
CPT/HCPCS: 36415; 80053; 85025

== ENCOUNTER 2025-02-14 04:03 | Outpatient (CLI) | payer BC, SELFPAY ==
[2025-02-14 13:17] LABS: Abs Immature Grans 0.02 10^3/uL (0.0-0.06); Absolute Basophil Count 0.03 10^3/uL (0.0-0.2); Absolute Eosinophil Count 0.12 10^3/uL (0.0-0.7); Absolute Lymphocyte Count 2.11 10^3/uL (1.2-3.4); Absolute Monocyte Count 0.49 10^3/uL (0.1-0.8); Absolute Neutrophil Count 3.04 10^3/uL (1.2-6.7); Basophils % 0.5 %; Eosinophils % 2.1 %; HCT 36.6 % (36.0-46.0); HGB 12.9 g/dL (11.2-15.7); Immature Grans % 0.3 %; Lymphocytes % 36.3 %; MCH 31.2 pg (27.0-33.0); MCHC 35.2 % (32.0-36.0); MCV 88 fL (80-95); Monocytes % 8.4 %; Neutrophils % 52.4 %; Platelet Count 258 10^3/uL (130-400); RBC 4.14 10^6/uL (3.93-5.22); RDW 12.7 % (11.7-14.6); RDW-SD 40.9 fL; WBC 5.81 10^3/uL (4.4-10.8)
[2025-02-14 13:51] LABS: ALT 33 U/L (14-59); AST 31 U/L (15-37); Albumin 3.8 g/dL (3.4-5.0); Alkaline Phosphatase 125 U/L (46-116); Anion Gap 5.9 mmol/L (3-11); BUN 9 mg/dL (7-18); Bilirubin, Total 1.3 mg/dL (0.2-1.0); CO2 29.1 mmol/L (21.0-32.0); CREATININE 0.8 mg/dL (0.55-1.02); Calcium 9.9 mg/dL (8.5-10.1); Chloride 105 mmol/L (98-107); Estimated GFR 83.78 (mL/min/1.73m2); Glucose 102 mg/dL (74-106); Potassium 3.5 mmol/L (3.5-5.1); Sodium 140 mmol/L (136-145); Total Protein 7.5 g/dL (6.4-8.2)
== END 2025-02-14 04:04 | disposition home or self-care (01) ==
LOC: LBO 04:03
PROVIDERS: PCP Physician Assistant; Visit Provider Nurse Practitioner
DX: C50.912 Malignant neoplasm of unspecified site of left female breast (principal); Z17.0 Estrogen receptor positive status [ER+]
CPT/HCPCS: 36415; 80053; 85025

== ENCOUNTER 2025-09-04 11:53 | Outpatient (REF) | payer BC, SELFPAY ==
[2025-09-04 15:55] LABS: Hemoglobin A1C 6.6 % (<5.7)
[2025-09-04 16:12] LABS: ALT 29 U/L (10-49); AST 37 U/L (<34); Albumin 4.4 g/dL (3.2-5.0); Alkaline Phosphatase 113 U/L (46-116); Anion Gap 10.7 mmol/L (3-11); BUN 8 mg/dL (9-23); Bilirubin, Total 1.50 mg/dL (0.2-1.2); CO2 25.3 mmol/L (20.0-31.0); Calcium 9.1 mg/dL (8.3-10.6); Chloride 107 mmol/L (98-107); Cholesterol 168 mg/dL (<200); Glucose 197 mg/dL (74-106); HDL Cholesterol 44 mg/dL (>40); Potassium 4.0 mmol/L (3.5-5.1); Sodium 143 mmol/L (136-145); Total Protein 7.0 g/dL (5.7-8.2)
== END 2025-09-04 11:54 | disposition home or self-care (01) ==
LOC: NCHCN 11:53
PROVIDERS: PCP Physician Assistant; Visit Provider Physician Assistant
DX: E78.5 Hyperlipidemia, unspecified (principal); E11.9 Type 2 diabetes mellitus without complications
CPT/HCPCS: 80053; 80061; 83036